=== PATIENT | female | born 1995 | race African-American/Black ===

== ENCOUNTER → 2020-07-23 12:47 | Outpatient (BNVA) | payer OTHER, SELFPAY | PROVIDERS: Visit Provider Advanced Practice Midwife | DX: Z34.90 Encounter for supervision of normal pregnancy, unspecified, unspecified trimester (principal) | CPT/HCPCS: 81025; 99211 ==

== ENCOUNTER → 2020-08-19 14:02 | Outpatient (BNVA) | payer OTHER, SELFPAY | PROVIDERS: Visit Provider Advanced Practice Midwife | DX: Z76.89 Persons encountering health services in other specified circumstances (principal) ==

== ENCOUNTER → 2020-09-14 09:22 | Outpatient (BNVA) | payer OTHER, SELFPAY | PROVIDERS: Visit Provider Advanced Practice Midwife | DX: Z76.89 Persons encountering health services in other specified circumstances (principal) ==

== ENCOUNTER 2020-09-28 10:22 | Outpatient (REF) | payer OTHER, SELFPAY ==
[2020-09-29 11:07] LABS: BV Int Neg Control Negative (Negative); BV Int Pos Control Positive (Positive)
[2020-10-23 10:42] LABS: CT PCR NOT DETECTED (Not Detect.); NG PCR NOT DETECTED (Not Detect.)
== END 2020-09-28 10:23 | disposition home or self-care (01) ==
LOC: HO.LAB 10:22
PROVIDERS: Visit Provider Advanced Practice Midwife
DX: O03.9 Complete or unspecified spontaneous abortion without complication (principal); N93.0 Postcoital and contact bleeding; Z11.8 Encounter for screening for other infectious and parasitic diseases; Z11.3 Encounter for screening for infections with a predominantly sexual mode of transmission
CPT/HCPCS: 87480; 87491; 87510; 87591; 87660; 99212

== ENCOUNTER 2020-11-18 07:48 | Outpatient (REF) | payer OTHER, SELFPAY ==
[2020-11-18 10:39] LABS: HCG Quantitative < 2 mIU/mL
[2020-11-18 10:48] LABS: HBsAGNum1 0.18 S/CO (0.00-0.99); HIV AB/AG Nonreactive (Nonreactive); HIV Num 1 0.08 S/CO (0.00-0.99); Hepatitis B Surface Antigen Negative (Negative)
[2020-11-18 11:05] LABS: ~HepC Num1 0.15 S/CO (0.00-0.79); ~Hepatitis C Antibody Nonreactive (Nonreactive)
[2020-11-19 09:12] LABS: Syphilis Screen Nonreactive (Nonreactive)
== END 2020-11-18 07:49 | disposition home or self-care (01) ==
LOC: HO.LAB 07:48
PROVIDERS: PCP Internal Medicine; Visit Provider Advanced Practice Midwife
DX: Z01.419 Encounter for gynecological examination (general) (routine) without abnormal findings (principal); Z87.59 Personal history of other complications of pregnancy, childbirth and the puerperium
CPT/HCPCS: 36415; 84702; 86780; 86803; 87340; 87389

== ENCOUNTER 2021-02-02 16:45 | Outpatient (REF) | payer OTHER, SELFPAY ==
[2021-02-02 18:08] LABS: Hematocrit 42.6 % (37-47); Hemoglobin 14.2 g/dl (12.0-16.0); Mean Corpuscular HGB Conc 33.3 g/dl (31.0-35.0); Mean Platelet Volume 9.6 fL (9.4-12.3); Platelet Count 261 X10*3/uL (160-400); Red Blood Count 4.58 X10*6/uL (4.20-5.50); Red Cell Distribution Width 12.7 % (11.0-16.0)
[2021-02-02 18:25] LABS: Alanine Aminotransferase 8 U/L (0-31); Albumin Level 4.6 g/dL (3.5-5.0); Alkaline Phosphatase 71 U/L (39-117); Anion Gap 11 (12-20); Aspartate Amino Transferase 14 U/L (5-31); Bilirubin Direct 0.7 mg/dL (0.0-0.5); Bilirubin Total 2.1 mg/dL (0.0-1.0); Blood Urea Nitrogen 8 mg/dL (9-16); Calcium 9.3 mg/dL (8.4-10.2); Carbon Dioxide 27 mmol/L (22-29); Chloride 105 mmol/L (96-108); Estimated Glomerular Filt Rate > 60; Glucose Random 62 mg/dL (60-115); Potassium 4.4 mmol/L (3.3-5.1); Sodium 139 mmol/L (135-145); Total Protein 7.4 g/dL (6.5-8.0)
[2021-02-02 18:46] LABS: Thyroid Stimulating Hormone 0.59 uIU/mL (0.32-4.0)
== END 2021-02-02 16:46 | disposition home or self-care (01) ==
LOC: HO.LAB 16:45
PROVIDERS: Visit Provider Internal Medicine
DX: Z01.818 Encounter for other preprocedural examination (principal)
CPT/HCPCS: 36415; 80048; 80076; 84443; 85027

== ENCOUNTER 2021-03-15 08:26 | Outpatient (REF) | payer OTHER, SELFPAY ==
[2021-03-15 13:02] LABS: CT PCR NOT DETECTED (Not Detect.); NG PCR NOT DETECTED (Not Detect.)
[2021-03-16 08:42] LABS: BV Int Neg Control Negative (Negative); BV Int Pos Control Positive (Positive)
== END 2021-03-15 08:27 | disposition home or self-care (01) ==
LOC: HO.LAB 08:26
PROVIDERS: PCP Internal Medicine; Visit Provider Advanced Practice Midwife
DX: Z20.2 Contact with and (suspected) exposure to infections with a predominantly sexual mode of transmission (principal)
CPT/HCPCS: 87480; 87491; 87510; 87591; 87660; 99212

== ENCOUNTER 2021-06-13 13:15 | Outpatient (REF) | payer OTHER, SELFPAY ==
[2021-06-14 01:01] LABS: CT PCR NOT DETECTED (Not Detect.)
[2021-06-14 01:02] LABS: NG PCR NOT DETECTED (Not Detect.)
[2021-06-14 08:38] LABS: BV Int Neg Control Negative (Negative); BV Int Pos Control Positive (Positive)
== END 2021-06-13 13:16 | disposition home or self-care (01) ==
LOC: HO.LAB 13:15
PROVIDERS: PCP Internal Medicine; Visit Provider Advanced Practice Midwife
DX: Z11.3 Encounter for screening for infections with a predominantly sexual mode of transmission (principal); Z20.2 Contact with and (suspected) exposure to infections with a predominantly sexual mode of transmission
CPT/HCPCS: 87480; 87491; 87510; 87591; 87660; 99212

== ENCOUNTER 2021-09-14 07:41 | Outpatient (REF) | payer OTHER, SELFPAY ==
[2021-09-15 01:26] LABS: CT PCR NOT DETECTED (Not Detect.); NG PCR NOT DETECTED (Not Detect.)
[2021-09-15 10:14] LABS: BV Int Neg Control Negative (Negative); BV Int Pos Control Positive (Positive)
== END 2021-09-14 07:42 | disposition home or self-care (01) ==
LOC: HO.LAB 07:41
PROVIDERS: PCP Internal Medicine; Visit Provider Advanced Practice Midwife
DX: N89.8 Other specified noninflammatory disorders of vagina (principal); Z20.2 Contact with and (suspected) exposure to infections with a predominantly sexual mode of transmission
CPT/HCPCS: 87480; 87491; 87510; 87591; 87660; 99212

== ENCOUNTER 2022-07-20 11:22 | Outpatient (REF) | payer OTHER, SELFPAY ==
[2022-07-20 16:47] LABS: CT PCR NOT DETECTED (Not Detect.); NG PCR NOT DETECTED (Not Detect.)
[2022-07-21 10:26] LABS: BV Int Neg Control Negative (Negative); BV Int Pos Control Positive (Positive)
== END 2022-07-20 11:23 | disposition home or self-care (01) ==
LOC: HO.LNP 11:22
PROVIDERS: Visit Provider Advanced Practice Midwife
DX: N89.8 Other specified noninflammatory disorders of vagina (principal); Z11.3 Encounter for screening for infections with a predominantly sexual mode of transmission; Z11.8 Encounter for screening for other infectious and parasitic diseases
CPT/HCPCS: 87480; 87491; 87510; 87591; 87660; 99212

== ENCOUNTER 2023-03-15 11:14 | Outpatient (REF) | payer OTHER, SELFPAY ==
[2023-03-15 14:25] LABS: MANUAL DIFF FLAG NO
[2023-03-15 14:41] LABS: Basophils Percent Auto 0.7 % (0-2); Eosinophils Percent Auto 0.7 % (0-4); Hematocrit 41.3 % (37.0-47.0); Hemoglobin 13.7 g/dl (12.0-16.0); Imm Gran Abs Auto 0.01 X10*3/uL (0.00-0.03); Imm Gran Pct Auto 0.2 % (0.0-0.4); Lymphocytes Absolute Auto 1.3 X10*3/uL (1.2-4.9); Lymphocytes Percent Auto 29.8 % (20-40); Mean Corpuscular HGB Conc 33.2 g/dl (31.0-35.0); Mean Corpuscular Hemoglobin 30.8 pg (27.0-33.0); Mean Corpuscular Volume 92.8 fL (80.0-98.0); Mean Platelet Volume 10.2 fL (9.4-12.3); Monocytes Absolute Auto 0.3 X10*3/uL (0.1-1.2); Monocytes Percent Auto 7.2 % (2-11); Neutrophils Absolute Auto 2.6 x10*3/uL (2.0-8.3); Neutrophils Percent Auto 61.4 % (45-73); Platelet Count 229 X10*3/uL (160-400); Red Blood Count 4.45 X10*6/uL (4.20-5.50); Red Cell Distribution Width 12.1 % (11.0-16.0); White Blood Count 4.2 X10*3/uL (4.8-10.8)
[2023-03-15 15:07] LABS: Alanine Aminotransferase 9 U/L (0-31); Albumin Level 4.4 g/dL (3.5-5.0); Alkaline Phosphatase 60 U/L (39-117); Anion Gap 10 (12-20); Aspartate Amino Transferase 15 U/L (5-31); Blood Urea Nitrogen 9 mg/dL (9-16); Calcium 9.4 mg/dL (8.4-10.2); Carbon Dioxide 25 mmol/L (22-29); Chloride 106 mmol/L (96-108); Cholesterol 143 mg/dL; Estimated Glomerular Filt Rate > 60; Glucose Random 97 mg/dL (60-115); Iron 118 mcg/dL (30-160); Percent Iron Saturation 34 % (15-50); Potassium 4.1 mmol/L (3.3-5.1); Sodium 137 mmol/L (135-145); Total Iron Binding Capacity 343 mcg/dL (228-428); Total Protein 7.3 g/dL (6.5-8.0); Unsaturated Iron Binding 225 ug/dL
[2023-03-15 15:23] LABS: Ferritin 20 ng/mL (10-122); TSH reflex Free T4 0.59 uIU/mL (0.32-4.0)
== END 2023-03-15 11:15 | disposition home or self-care (01) ==
LOC: HO.HMGCLDS 11:14
PROVIDERS: PCP Internal Medicine; Visit Provider Nurse Practitioner Family
DX: D50.9 Iron deficiency anemia, unspecified (principal); Z13.29 Encounter for screening for other suspected endocrine disorder; Z13.1 Encounter for screening for diabetes mellitus; Z13.0 Encounter for screening for diseases of the blood and blood-forming organs and certain disorders involving the immune mechanism; Z13.220 Encounter for screening for lipoid disorders
CPT/HCPCS: 36415; 80053; 82465; 82728; 83540; 84443; 85025

== ENCOUNTER 2023-03-31 08:29 | Outpatient (REF) | payer OTHER, SELFPAY ==
[2023-03-31 09:50] LABS: Bilirubin Direct 0.6 mg/dL (0.0-0.5)
== END 2023-03-31 08:30 | disposition home or self-care (01) ==
LOC: HO.LAB 08:29
PROVIDERS: PCP Internal Medicine; Visit Provider Nurse Practitioner Family
DX: R17 Unspecified jaundice (principal)
CPT/HCPCS: 36415; 82248

== ENCOUNTER 2023-04-02 18:54 | Emergency (ER) | payer OTHER, SELFPAY ==
[2023-04-02 18:59] VITALS: BP 140/77; PULSE 82; RESP 18; TEMP 36.4; O2SAT 98; BMI 18.7
--- NOTE | 2023-04-02 18:59 | ED_ITS ---
HPI - General Adult General Chief complaint: Abdominal Pain Stated complaint: abd pain Time Seen by Provider: 04/02/23 20:35 Source: patient Mode of arrival: ambulatory Limitations: no limitations History of Present Illness HPI narrative: Patient is a 27-year-old female who presents emergency department for evaluation of abdominal pain. Ports onset of pain to be approximately 5 days ago while at work. She was experiencing right lower quadrant of abdominal pain. Intermittent in nature since onset. Typically lasting about 1 hour. Improved after using the bathroom; moving bowels/urinating. She denies dysuria or hematuria, she urinary frequency. Her last menstrual period was approximately 2 months ago, irregular normally due to Nexplanon. Denies fevers, chills, chest pain, shortness of breath, nausea, vomiting, upper abdominal pain, constipation, pelvic pain, vaginal discharge, or concern for sexually transmitted infections. Denies possibility of . At this time she currently denies any pain. Related Data Home Medications Medication Instructions Recorded Confirmed etonogestrel 68 mg subdermal subdermal 07/20/22 implant (Nexplanon) Previous Rx's Medication Instructions Recorded cephalexin 250 mg capsule 250 mg PO BID #10 caps 04/02/23 Allergies Allergy/AdvReac Type Severity Reaction Status Date / Time No Known Allergies Allergy Verified 04/02/23 19:02 [No Known Allergies*] Review of Systems Review of Systems: Yes all other systems are reviewed and are negative [facility] Past Medical History Attestation statement: The following information was validated with the patient. Source: old records reviewed Medical History (Updated 04/02/23 @ 21:22 by Ofelia Laureano CNP) Jesusita-Ish syndrome History of anemia Surgical History History of eye surgery Family History Family History Mother No problems noted. Father No problems noted. Social History Social History (Updated 03/08/23 @ 07:51 by ANTHONY Mercedes) Household Members: Family Housing: Other (Stay with family) Alcohol intake: current Alcohol intake frequency: holidays/special occasions only Patient Tobacco Use Status: Never used Tobacco Smoked in Last 30 Days: No e-Cigarette/Vaping Use: Former Use Second Hand Smoke Exposure: No Use of substances other than those prescribed or required for medical reasons: No Advance Directives: No Advance Directives Information Provided: No Patient : No Current occupational status: employed Sexual orientation: Straight/Heterosexual Gender identity: Female Cognitive needs: No Hearing needs: No Vision needs: Yes Physical Exam ED Vital Signs: Vital Signs - 24 hr 04/02/23 18:59 04/02/23 20:04 04/02/23 21:31 Temperature 97.5 F 98.0 F Pulse Rate 82 88 2 L Respiratory Rate 18 17 18 Blood Pressure 140/77 H 121/74 118/78 Pulse Oximetry 98 100 100 Oxygen Delivery Method Room Air Room Air BMI result Body Mass Index 18.7 Vital signs have been reviewed as normal and appeared to be correct. Blood pressure normal.? Heart rate normal.? Respiration rate normal. Temperature normal.? Oxygen saturation normal. Const Other: Appearance: Alert.?Oriented to person, place and time. No acute distress.?Normal affect.? Neck: Normal inspection.? Neck supple.?? CVS: Heart sounds normal. Normal heart rate and rhythm.? Pulses normal.?? Respiratory: No respiratory distress.? Lung sounds clear to auscultation bilaterally?? Abdomen: Soft and non-tender. Normoactive bowel sounds. No pulsatile mass.?? Skin: Skin warm and dry.? Normal skin color.? Normal skin turgor.?? Extremities: No lower extremity edema.? Neuro: Moves all extremities spontaneously. Sensation intact bilaterally. Ambulates with normal steady gait. Course Course Course Narrative: RME- 27-year-old female presents for evaluation of lower abdominal pain. Plan for labs, UA, U preg Reevaluation(s) Reevaluation #1: CBC is unremarkable, no leukocytosis. CMP is overall unremarkable. Lipase within normal limits. Urinalysis with 1+ bacteriuria, slight microscopic hematuria, may be secondary to mild urinary tract infection, at this time not consistent with pyelonephritis, lower suspicion for renal calculi, however it is possible. I discussed obtaining CT of the abdomen and pelvis with patient for further evaluation, she declines at this time, states that if her symptoms worsen she will follow-up with her primary care provider. Given urinary frequency will treat as urinary tract infection, culture to be followed. At this time Abdominal examination is benign, not consistent with acute abdomen at this time, I have a low suspicion for appendicitis, diverticulitis, bowel obstruction, ovarian torsion. test is negative. Patient is agreeable with plan of care, stable for discharge. Time: 21:06 Medical Decision Making Medical Decision Making [facility] Narrative: Patient is a 27-year-old female with past medical history of iron deficiency anemia, due in Ish syndrome presenting to emergency department for evaluation of intermittent lower abdominal pain, currently is asymptomatic from pain, however endorsing urinary frequency. Will obtain CBC to evaluate for leukocytosis/ anemia, CMP and lipase to evaluate for abnormal electrolytes /abnormal renal function/ abnormal hepatic/biliary function, Urinalysis. Differential Diagnosis Differential Diagnoses: The differential diagnosis associated with the presentation includes (Urinary tract infection, pelvic infection, PID, sexually transmitted infection, appendicitis, diverticulitis, cholecystitis, hepatitis, constipation, bowel obstruction, ovarian cyst, ovarian torsion, ) Lab Data [facility] Lab Attestation statement: I reviewed the patient's lab results. 04/02/23 19:04/02/23 19:06 Labs: Lab Results 04/02/23 04/02/23 04/02/23 Range/Units 19:06 19:06 20:32 WBC 5.9 (4.8-10.8) X10*3/uL RBC 4.37 (4.20-5.50) X10*6/uL Hgb 13.4 (12.0-16.0) g/dl Hct 39.1 (37.0-47.0) % MCV 89.5 (80.0-98.0) fL MCH 30.7 (27.0-33.0) pg MCHC 34.3 (31.0-35.0) g/dl RDW 11.9 (11.0-16.0) % Plt Count 244 (160-400) X10*3/uL MPV 9.2 L (9.4-12.3) fL Immature Gran % (Auto) 0.3 (0.0-0.4) % Neut % (Auto) 57.3 (45-73) % Lymph % (Auto) 33.8 (20-40) % [place] % (Auto) 6.9 (2-11) % Eos % (Auto) 1.4 (0-4) % Baso % (Auto) 0.3 (0-2) % Lymph # (Auto) 2.0 (1.2-4.9) X10*3/uL [place] # (Auto) 0.4 (0.1-1.2) X10*3/uL Eos # (Auto) 0.1 (0.0-0.4) X10*3/uL Baso # (Auto) 0.0 (0.0-0.2) X10*3/uL Abs Immat Gran (auto) 0.02 (0.00-0.03) X10*3/uL Absolute Neuts (auto) 3.4 (2.0-8.3) x10*3/uL Absolute Nucleated RBC 0.000 (0.0-0.012) X10*3/uL Nucleated RBC % (auto) 0.0 (0.0-0.2) /100WBC Sodium 140 (135-145) mmol/L Potassium 3.9 (3.3-5.1) mmol/L Chloride 108 (96-108) mmol/L Carbon Dioxide 22 (22-29) mmol/L Anion Gap 14 (12-20) BUN 8 L (9-16) mg/dL Creatinine 0.87 (0.5-1.4) mg/dL Estim Creat Clear Calc 92.0 Estimated GFR > 60 Random Glucose 107 (60-115) mg/dL Calcium 9.7 (8.4-10.2) mg/dL Total Bilirubin 2.1 H (0.0-1.0) mg/dL AST 17 (5-31) U/L ALT 9 (0-31) U/L Alkaline Phosphatase 58 (39-117) U/L Total Protein 7.3 (6.5-8.0) g/dL Albumin 4.4 (3.5-5.0) g/dL Lipase 23 (8-78) U/L Urine Color Yellow Urine Appearance Clear Urine pH 7.0 (5.0-9.0) Ur Specific [place] 1.015 (1.005-1.025) Urine Protein Negative (Neg-Trace) mg/dL Urine Glucose (UA) Negative (Negative) mg/dL Urine Ketones Negative (Negative) mg/dL Urine Blood Negative (Negative) Urine Nitrite Negative (Negative) Ur Leukocyte Esterase Negative (Negative) Urine RBC 3-5 H (0-2) /HPF Urine WBC 0-5 (0-5) /HPF Ur Squamous Epith Cells 0-2 (0-2) /HPF Urine Bacteria 1+ (None Seen) Hyaline Casts 0-2 (0-2) /LPF Urine Test (NEGATIVE) 04/02/23 Range/Units 20:32 WBC (4.8-10.8) X10*3/uL RBC (4.20-5.50) X10*6/uL Hgb (12.0-16.0) g/dl Hct (37.0-47.0) % MCV (80.0-98.0) fL MCH (27.0-33.0) pg MCHC (31.0-35.0) g/dl RDW (11.0-16.0) % Plt Count (160-400) X10*3/uL MPV (9.4-12.3) fL Immature Gran % (Auto) (0.0-0.4) % Neut % (Auto) (45-73) % Lymph % (Auto) (20-40) % [place] % (Auto) (2-11) % Eos % (Auto) (0-4) % Baso % (Auto) (0-2) % Lymph # (Auto) (1.2-4.9) X10*3/uL [place] # (Auto) (0.1-1.2) X10*3/uL Eos # (Auto) (0.0-0.4) X10*3/uL Baso # (Auto) (0.0-0.2) X10*3/uL Abs Immat Gran (auto) (0.00-0.03) X10*3/uL Absolute Neuts (auto) (2.0-8.3) x10*3/uL Absolute Nucleated RBC (0.0-0.012) X10*3/uL Nucleated RBC % (auto) (0.0-0.2) /100WBC Sodium (135-145) mmol/L Potassium (3.3-5.1) mmol/L Chloride (96-108) mmol/L Carbon Dioxide (22-29) mmol/L Anion Gap (12-20) BUN (9-16) mg/dL Creatinine (0.5-1.4) mg/dL Estim Creat Clear Calc Estimated GFR Random Glucose (60-115) mg/dL Calcium (8.4-10.2) mg/dL Total Bilirubin (0.0-1.0) mg/dL AST (5-31) U/L ALT (0-31) U/L Alkaline Phosphatase (39-117) U/L Total Protein (6.5-8.0) g/dL Albumin (3.5-5.0) g/dL Lipase (8-78) U/L Urine Color Urine Appearance Urine pH (5.0-9.0) Ur Specific [place] (1.005-1.025) Urine Protein (Neg-Trace) mg/dL Urine Glucose (UA) (Negative) mg/dL Urine Ketones (Negative) mg/dL Urine Blood (Negative) Urine Nitrite (Negative) Ur Leukocyte Esterase (Negative) Urine RBC (0-2) /HPF Urine WBC (0-5) /HPF Ur Squamous Epith Cells (0-2) /HPF Urine Bacteria (None Seen) Hyaline Casts (0-2) /LPF Urine Test NEGATIVE (NEGATIVE) Independent Historian Clinical information obtained from an independent historian. History obtained from or confirmed by: Parent (Mother is at bedside who confirms history) Tests considered The following testing was considered but not selected: I considered CT of the abdomen/pelvis, however after shared decision making with patient will defer at this time. Hemodynamically stable, examination not consistent with acute abdomen Prescription Management I considered prescription management with: Antibiotic Discharge Plan Discharge Clinical Impression: Urinary tract infection Patient Disposition: Home, Self-Care Instructions: Urinary Tract Infection in Women (ED) Additional Instructions: As we discussed, the microscopic blood in your urine may be due to a mild urinary tract infection and/or a very small kidney stone. We discussed having a CT of your abdomen/pelvis in the emergency department, however at this time you declined. I have sent a prescription for an antibiotic to your pharmacy for treatment of urinary tract infection. Please contact your primary care provider in follow-up for persistent pain/symptoms kit in the next 2-3 days. You may return back to the emergency department with any new or significantly worsening symptoms or concerns. Prescriptions: New cephalexin 250 mg capsule 250 mg PO BID Qty: 10 0RF No Action Nexplanon 68 mg implant subdermal Referrals: Po,Buddy Carroll MD [Primary Care Provider] - Interventions: ED Discharge Assessment Last Done: 04/02/23 21:33 Discharge Date/Time: 04/02/23 21:33
[2023-04-02 19:10] LABS: MANUAL DIFF FLAG NO
[2023-04-02 19:21] LABS: Basophils Percent Auto 0.3 % (0-2); Eosinophils Absolute Auto 0.1 X10*3/uL (0.0-0.4); Eosinophils Percent Auto 1.4 % (0-4); Hematocrit 39.1 % (37.0-47.0); Hemoglobin 13.4 g/dl (12.0-16.0); Imm Gran Abs Auto 0.02 X10*3/uL (0.00-0.03); Imm Gran Pct Auto 0.3 % (0.0-0.4); Lymphocytes Percent Auto 33.8 % (20-40); Mean Corpuscular HGB Conc 34.3 g/dl (31.0-35.0); Mean Corpuscular Hemoglobin 30.7 pg (27.0-33.0); Mean Corpuscular Volume 89.5 fL (80.0-98.0); Mean Platelet Volume 9.2 fL (9.4-12.3); Monocytes Absolute Auto 0.4 X10*3/uL (0.1-1.2); Monocytes Percent Auto 6.9 % (2-11); Neutrophils Absolute Auto 3.4 x10*3/uL (2.0-8.3); Neutrophils Percent Auto 57.3 % (45-73); Platelet Count 244 X10*3/uL (160-400); Red Blood Count 4.37 X10*6/uL (4.20-5.50); Red Cell Distribution Width 11.9 % (11.0-16.0); White Blood Count 5.9 X10*3/uL (4.8-10.8)
[2023-04-02 19:27] LABS: Alanine Aminotransferase 9 U/L (0-31); Albumin Level 4.4 g/dL (3.5-5.0); Alkaline Phosphatase 58 U/L (39-117); Anion Gap 14 (12-20); Aspartate Amino Transferase 17 U/L (5-31); Bilirubin Total 2.1 mg/dL (0.0-1.0); Blood Urea Nitrogen 8 mg/dL (9-16); Calcium 9.7 mg/dL (8.4-10.2); Carbon Dioxide 22 mmol/L (22-29); Chloride 108 mmol/L (96-108); Estimated Glomerular Filt Rate > 60; Glucose Random 107 mg/dL (60-115); Lipase 23 U/L (8-78); Potassium 3.9 mmol/L (3.3-5.1); Sodium 140 mmol/L (135-145); Total Protein 7.3 g/dL (6.5-8.0)
[2023-04-02 20:04] VITALS: BP 121/74; PULSE 88; RESP 17; TEMP 36.7; O2SAT 100
--- NOTE | 2023-04-02 20:23 | PC.NURSE ---
Assumed care of pt. Pt ambulated in under own power. Endorsing lower mid abdominal pain, with mild radiation to LLQ. Pt stating increase in urinary frequency, denies other urinary symptoms. No other complaints at his time. VSS, pending urine sample.
[2023-04-02 20:42] LABS: UPreg QC Valid YES
[2023-04-02 20:43] LABS: Appearance Urine Clear; Color Urine Yellow; Glucose Urine UA Negative (Negative); Leukocyte Esterase Urine Negative (Negative); Nitrite Urine Negative (Negative); Specific Gravity - Urine 1.015 (1.005-1.025); Urine Blood Negative (Negative); Urine Ketones Negative (Negative); Urine Protein Negative (Neg-Trace)
[2023-04-02 20:45] LABS: Urine Pregnancy NEGATIVE (NEGATIVE)
[2023-04-02 20:53] LABS: Bacteria Urine 1+ (None Seen); Hyaline Casts Urine 0-2 /LPF (0-2); Squamous Epithelial Cell Urine 0-2 /HPF (0-2); WBC Urine 0-5 /HPF (0-5)
[2023-04-02 21:31] VITALS: BP 118/78; PULSE 2; RESP 18; O2SAT 100
== END 2023-04-02 21:33 | disposition home or self-care (01) ==
PROVIDERS: Physician Assistant; Emergency Provider Emergency Medicine; PCP Internal Medicine
DX: N39.0 Urinary tract infection, site not specified (principal); Z79.899 Other long term (current) drug therapy
CPT/HCPCS: 36415; 80053; 81001; 81025; 83690; 85025; 99283; 99284

== ENCOUNTER 2023-04-19 19:52 | Emergency (ER) | payer OTHER, SELFPAY ==
[2023-04-19 19:58] VITALS: BP 124/81; PULSE 77; RESP 18; TEMP 36.4; O2SAT 97; BMI 18.7
--- NOTE | 2023-04-19 19:58 | ED.GENADULT ---
HPI - General Adult General Chief complaint: Chest Pain Stated complaint: Chest Pain Time Seen by Provider: 04/19/23 21:27 Source: patient Mode of arrival: ambulatory Limitations: no limitations History of Present Illness HPI narrative: Patient is a 28-year-old female who presents to emergency department for evaluation of chest pain. Patient reports around 1300 today while at work she developed sharp left anterior chest pain. The pain was persistent while at work, and she then developed radiation into her left arm. At this time the pain has nearly completely resolved. She does describe some soreness. She denies associated dizziness, lightheadedness, vision changes, neck pain, shortness of breath difficulty breathing, recent URI symptoms, cough, nausea vomiting abdominal pain, numbness of the extremities, recent lower extremity swelling or redness. Her mother is present at bedside confirms this history. Past medical history is unknown as she was adopted. Related Data Home Medications Medication Instructions Recorded Confirmed etonogestrel 68 mg subdermal subdermal 07/20/22 implant (Nexplanon) Previous Rx's Medication Instructions Recorded cephalexin 250 mg capsule 250 mg PO BID #10 caps 04/02/23 Allergies Allergy/AdvReac Type Severity Reaction Status Date / Time No Known Allergies Allergy Verified 04/02/23 19:02 [No Known Allergies*] Review of Systems Review of Systems: Constitutional : No Weight loss, No Fever, No Chills ENT/Mouth :? No sore throat, No Rhinorrhea Eyes: No Eye Pain, No Swelling Cardiovascular : pos Chest Pain, no SOB, no Dyspnea on Exertion, No Orthopnea, No Edema, No Palpitations Respiratory : No Cough, No Sputum Gastrointestinal : No Nausea, No Vomiting, No Diarrhea, No abdominal Pain, No Hematochezia, No Melena Genitourinary : No Dysuria, No Urinary Frequency Musculoskeletal : No joint pain, No Myalgias, No Joint Swelling Skin : No Skin Lesions, No rash Neuro : No Weakness, No Numbness, No Dizziness, No Headache Psych : No Anxiety/Panic, No Depression Heme/Lymph: No Bruising, No Lymphadenopathy Endocrine : No Polyuria, No Polydipsia Yes all other systems are reviewed and are negative [facility] Past Medical History Attestation statement: The following information was validated with the patient. Source: old records reviewed Medical History Jesusita-Ish syndrome History of anemia Surgical History History of eye surgery Family History Family History Mother No problems noted. Father No problems noted. Social History Social History (Updated 03/08/23 @ 07:51 by ANTHONY Mercedes) Household Members: Family Housing: Other (Stay with family) Alcohol intake: current Alcohol intake frequency: holidays/special occasions only Patient Tobacco Use Status: Never used Tobacco e-Cigarette/Vaping Use: Former Use Second Hand Smoke Exposure: No Advance Directives: No Advance Directives Information Provided: No Current occupational status: employed Sexual orientation: Straight/Heterosexual Gender identity: Female Cognitive needs: No Hearing needs: No Vision needs: Yes Physical Exam ED Vital Signs: Vital Signs - 24 hr 04/19/23 19:58 Temperature 97.5 F Pulse Rate 77 Respiratory Rate 18 Blood Pressure 124/81 Pulse Oximetry 97 Oxygen Delivery Method Room Air BMI result Body Mass Index 18.7 Appearance: Alert.?Oriented to person, place and time. No acute distress.?Normal affect. Eyes: Pupils equal, round and reactive to light.? ENT: Pharynx normal.?? Neck: Normal inspection.? Neck supple.?? CVS: Heart sounds normal. Normal heart rate and rhythm.? Pulses normal.?? Respiratory: No respiratory distress.? Lung sounds clear to auscultation bilaterally?? Abdomen: Soft and non-tender. Normoactive bowel sounds. No pulsatile mass.?? Skin: Skin warm and dry.? Normal skin color.? Extremities: No lower extremity edema.? No calf ttp? Neuro: Moves all extremities spontaneously. Sensation intact bilaterally. No focal neuro deficits. Ambulates with normal steady gait. Course Course Course Narrative: This is an RME: Additional HPI, ROS, PE not included below will be deferred to primary provider. This is a [id number]-female, with no known medical history, presenting to the emergency department with complaints of left sided chest pain x 5 hours. Chest pain is constant. No known FMHx of cardiac problems. VSS. Plan: EKG, chest x-ray, labs ordered Medical Decision Making Medical Decision Making MDM Narrative: Patient is a 28-year-old female with past medical history of anemia, Jesusita- Ish Syndrome who presents emergency department with her mother for evaluation of chest pain as per HPI. At the time my examination she is overall well-appearing, nontoxic, afebrile. Apparent respiratory distress. Speaking clear full sentences. Physical examination is benign. Chest pain at this time has nearly completely resolved, she does have some mild ?soreness? the left upper anterior chest, most notably worse while moving her left arm. Based on history this appears atypical for cardiac in nature. PERC negative, does not appear consistent with pulmonary embolism, therefore CT imaging deferred at this time. Reviewed labs obtained from rapid medical examination, no leukocytosis, no anemia. CMP is unremarkable. Troponin nondetectable, EKG revealing normal sinus rhythm without any acute ischemic findings. Chest x-ray is without acute cardiopulmonary process, no evidence of pneumonia or pneumothorax. Pain at this time pears most consistent to be musculoskeletal in nature. Reviewed use of NSAID heat/ice. Reviewed worrisome signs and symptoms that would warrant re-evaluation in the emergency department. Recommended outpatient follow-up with primary care provider. All questions answered. Stable for discharge. Differential Diagnosis Differential Diagnoses: The differential diagnosis associated with the presentation includes (As noted above) Admission/Observation Consideration of admission/observation: Escalation of care including admission/observation considered (I considered admission for chest pain, please see narrative above) Lab Data MDM Lab Attestation statement: I reviewed the patient's lab results. (Seen narrative above) 04/19/23 20:07 04/19/23 20:07 Labs: Lab Results 04/19/23 04/19/23 04/19/23 Range/Units 20:07 20:07 20:07 WBC 4.9 (4.8-10.8) X10*3/uL RBC 4.16 L (4.20-5.50) X10*6/uL Hgb 12.7 (12.0-16.0) g/dl Hct 37.0 (37.0-47.0) % MCV 88.9 (80.0-98.0) fL MCH 30.5 (27.0-33.0) pg MCHC 34.3 (31.0-35.0) g/dl RDW 11.9 (11.0-16.0) % Plt Count 239 (160-400) X10*3/uL MPV 9.1 L (9.4-12.3) fL Immature Gran % (Auto) 0.2 (0.0-0.4) % Neut % (Auto) 44.1 L (45-73) % Lymph % (Auto) 43.3 H (20-40) % [place] % (Auto) 8.7 (2-11) % Eos % (Auto) 3.1 (0-4) % Baso % (Auto) 0.6 (0-2) % Lymph # (Auto) 2.1 (1.2-4.9) X10*3/uL [place] # (Auto) 0.4 (0.1-1.2) X10*3/uL Eos # (Auto) 0.2 (0.0-0.4) X10*3/uL Baso # (Auto) 0.0 (0.0-0.2) X10*3/uL Abs Immat Gran (auto) 0.01 (0.00-0.03) X10*3/uL Absolute Neuts (auto) 2.1 (2.0-8.3) x10*3/uL Absolute Nucleated RBC 0.000 (0.0-0.012) X10*3/uL Nucleated RBC % (auto) 0.0 (0.0-0.2) /100WBC Sodium 139 (135-145) mmol/L Potassium 4.2 (3.3-5.1) mmol/L Chloride 109 H (96-108) mmol/L Carbon Dioxide 22 (22-29) mmol/L Anion Gap 12 (12-20) BUN 10 (9-16) mg/dL Creatinine 0.95 (0.5-1.4) mg/dL Estim Creat Clear Calc 83.5 Estimated GFR > 60 Random Glucose 85 (60-115) mg/dL Calcium 9.4 (8.4-10.2) mg/dL Troponin I High Sens < 2.7 (<3.5-17.0) ng/L Independent Interpretation I performed an independent interpretation of an: EKG and Plain X-Ray (I have personally interpreted chest x-ray agree with radiologist impression, no pneumonia or pneumothorax.) Interpretation: Rate: 68 Rhythm:? Normal sinus rhythm [place]:? Normal Normal P waves.? Normal LUCY.?? Normal QRS complex.?? ST T wave :??No ST elevation, no ST depression, T-wave inversion qTC: 387 prior studies:? None prior available for review The study has been interpreted contemporaneously by me. Radiology Impression Discussion of test interpretation with radiology: I have reviewed the radiologist's reading. Radiologist Impression: XR/XR chest 2V IMPRESSION: Clear lungs. ? Independent Historian Clinical information obtained from an independent historian. History obtained from or confirmed by: Parent (Patient's mother is at bedside who confirms history.) External Record Review External record reviewed: Prior outpatient labs Tests considered The following testing was considered but not selected: I considered CT imaging of the chest, however deferred please see narrative above. Prescription Management I considered prescription management with: Pain Medication (NSAID/acetaminophen) Discharge Plan Discharge Clinical Impression: Chest pain Patient Disposition: Home, Self-Care Instructions: Chest Pain (ED) Additional Instructions: As discussed, your blood work today was overall normal. There is no significant anemia. No sign of infection. The marker that we use to look at for indication of a heart attack was normal. Your EKG was normal. Your chest x-ray today was normal. Your pain has significantly improved. You can take ibuprofen 200 mg, 3 tablets (600mg) every 6-8 hours as needed for pain, in addition to Tylenol 500 mg, 2 tablets (1,000mg) every 4-6 hours as needed for pain, but not to exceed 3 doses daily (3,000mg).? Please contact your primary care provider and arrange for further follow-up. You may return back to the emergency department with any new or significantly worsening symptoms or concerns. Prescriptions: No Action cephalexin 250 mg capsule 250 mg PO BID Qty: 10 0RF Nexplanon 68 mg implant subdermal Referrals: Po,Buddy Carroll MD [Primary Care Provider] - Interventions: ED Discharge Assessment Last Done: 04/19/23 22:23 Discharge Date/Time: 04/19/23 22:24
== END 2023-04-19 22:24 | disposition home or self-care (01) ==
PROVIDERS: Emergency Provider Student in an Organized Health Care Education/Training Program; PCP Internal Medicine
DX: R07.9 Chest pain, unspecified (principal)
CPT/HCPCS: 36415; 71046; 80048; 84484; 85025; 93005; 99283

== ENCOUNTER 2023-07-12 07:40 | Outpatient (REF) | payer OTHER, SELFPAY ==
[2023-07-12 17:17] LABS: CT PCR NOT DETECTED (Not Detect.); NG PCR NOT DETECTED (Not Detect.)
== END 2023-07-12 07:41 | disposition home or self-care (01) ==
LOC: HO.LNP 07:40
PROVIDERS: PCP Internal Medicine; Visit Provider Advanced Practice Midwife
DX: Z01.419 Encounter for gynecological examination (general) (routine) without abnormal findings (principal); R10.2 Pelvic and perineal pain; Z20.2 Contact with and (suspected) exposure to infections with a predominantly sexual mode of transmission
CPT/HCPCS: 0353U; 88142; 99395

== ENCOUNTER 2023-07-12 07:40 | Outpatient (AMB) | payer OTHER, SELFPAY ==
[2023-07-12 07:50] VITALS: BP 100/62; BMI 19.7
--- NOTE | 2023-07-12 07:50 | A.OFFVIS_ITS ---
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 Scribed for [facility]USH[employer] [facility] by Rosa Parisi medical transcriptionist, on 07/12/2023 at 8:10 am EST. Founder & Ceo: Founder & Ceo Present (Tonie) Allergies No Known Allergies [No Known Allergies*] Allergy (Verified 07/12/23 07:53) Is last menstrual period known: Yes Last menstrual period: 06/14/23 HPI HPI Comments History of Present Illness Details She is a premenopausal woman presenting for annual exam. She admits to eating healthy and tries to stay active with exercise. Currently sexually active. Uses Nexplanon and is doing well with it; unsure of exact date of implantation. Reports occasionally having pelvic pain but believes its due to having gas. Denies urinary symptoms. Regular monthly periods. Denies vaginal itching and irritation. STD screening offered; she accepts. STD blood work offered; she declines. Denies family hx of breast, colon and ovarian cancer. (Reports she is adopted; unknown FMHx) Last pap smear 2019 normal hx per pt. [facility] Medical History (Updated 07/12/23 @ 08:46 by Elli Reddy CNM) Adopted Jesusita-Ish syndrome History of anemia Surgical History History of eye surgery Family History Mother No problems noted. Father No problems noted. Social History (Updated 07/12/23 @ 08:49 by Elli Reddy CNM) Household Members: Family Housing: Other (Stay with family) Alcohol intake: current Alcohol intake frequency: holidays/special occasions only Patient Tobacco Use Status: Never used Tobacco e-Cigarette/Vaping Use: Former Use Second Hand Smoke Exposure: No Current occupational status: employed Current occupation: [employer] [place] Sexual orientation: Straight/Heterosexual Gender identity: Female Cognitive needs: No Hearing needs: No Vision needs: Yes Female Reproductive History Menstrual Age of Menarche: 15 Date of last menstrual period: 06/14/23 control method: implanted (Nexplanon ?inserted 08/2022) Total pregnancies: 1 Full term: 1 Number of Living Children: 1 Physical Exam Vital Signs: Last Vital Signs BP 100/62 07/12/23 07:50 BMI result Body Mass Index 19.7 Const General: cooperative, healthy appearing, no acute distress, well developed and alert Orientation/consciousness: patient oriented x3 HEENT Head: Yes normal to inspection Eyes General: appearance normal, both eyes and all related structures Neck Neck: Yes normal visual inspection Thyroid: Thyroid normal Chest Chest palpation & inspection: normal inspection of the chest Breast/axilla inspection: normal inspection of the breasts (no puckering, dimpling, peau de orange, retraction, discharge, masses) Breast/axilla palpation: normal palpation of the breasts Resp Effort & Inspection: normal respiratory effort GI Inspection: Yes normal to inspection Palpation (GI): Soft to palpation (to palpation) Rectal Exam - Female: deferred General: Yes bladder normal to inspection External Female Exam: normal external appearance and normal appearance of the urethra Speculum Exam - Vagina: normal appearance of the vagina, normal palpation and abnormal vaginal discharge white (watery) Speculum Exam - Cervix: normal appearance of the cervix and normal palpation Bimanual exam- vagina & uterus: normal palpation and normal palpation Bimanual Exam- Adnexa, other: normal adnexae and no masses Skin General skin exam: no rashes or lesions noted Neuro General: patient oriented x3 Cognition (Neuro): normal cognition Extrem General: Yes normal to inspection Psych Attitude: cooperative Thought process: Normal thought process present Assessment & Plan Assessment & Plan (1) Encounter for well woman exam: Code(s): Z01.419 - Encounter for gynecological examination (general) (routine) without abnormal findings Plan: Discussed: Current recommendations for pap smears per ASCCP guidelines. Breast awareness and periodic self breast exams. Maintaining a healthy lifestyle including a well balanced diet and routine exercise. 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 Contact office regarding date of Nexplanon insertion, informed valid for 3 yrs. All of her questions and concerns were addressed to the best of my ability. RTO in one year for AG. (2) Pelvic pain: Code(s): R10.2 - Pelvic and perineal pain Plan: Dietary changes: Avoid carbonated drinks and cruciferous food. If experience bloating or discomfort contact office. (3) Potential exposure to STD: Code(s): Z20.2 - Contact with and (suspected) exposure to infections with a predominantly sexual mode of transmission Plan: BV testing and GC/CT panel done today. Await results and treat accordingly. Orders: Orders CT NG by PCR Today Z20.2 - Contact with and (suspected) exposure to infections with a predominantly sexual mode of transmission Pap Smear Today Z01.419 - Encounter for gynecological examination (general) (routine) without abnormal findings Coding Level of Care Code Est Pt Prev Care 18-39y(33256) Diagnoses Encounter for well woman exam Z01.419 Pelvic pain R10.2 Potential exposure to STD Z20.2
== END 2023-07-12 08:30 | disposition home or self-care (01) ==
PROVIDERS: PCP Internal Medicine; Visit Provider Advanced Practice Midwife
DX: Z01.419 Encounter for gynecological examination (general) (routine) without abnormal findings (principal); R10.2 Pelvic and perineal pain; Z20.2 Contact with and (suspected) exposure to infections with a predominantly sexual mode of transmission
CPT/HCPCS: 99395

== ENCOUNTER 2023-07-18 09:01 | Outpatient (AMB) | payer OTHER, SELFPAY ==
--- NOTE | 2023-07-18 10:29 | MHC.OFFWIV ---
Intake Intake Visit Reasons: [id number] Intake Note: Patient here for UTI sx for about 1 week such as cramping and abdominal pain. Patient Tobacco Use Status: Never used Tobacco Allergies No Known Allergies [No Known Allergies*] Allergy (Verified 07/18/23 10:30) Do you need a note to return to daycare/school/sports/work: No HPI HPI Comments History of Present Illness Details 1031 28-year-old female presents with urinary frequency, urgency, dysuria, lower abdominal cramping, suprapubic abdominal discomfort for the past week. Not improving. Patient tells me this feels like her typical UTI. She does not think that she is . She does not think she has any STDs. Patient denies fevers, chills, nausea, vomiting, flank pain, headache, vision changes, dizziness, weakness, chest pain and shortness of breath. Patient does report she has been taking azo with some relief of symptoms. Physical examination benign no abdominal tenderness to palpation. No rebound or guarding History and physical exam concerning for possible UTI versus cystitis. Unlikely pyelonephritis, acute abdomen, appendicitis, cholecystitis, diverticulitis, pancreatitis, obstruction. Unlikely kidney stones or obstructing uropathy Plan at this time UA. Will treat patient with Ceftin. Educated patient on diagnosis and treatment plan, answered all question, patient verbalizes understanding. At this time patient will be discharged home, advised to return with new or worsening symptoms. Educated on worrisome signs and symptoms and when to return. At this time I feel comfortable discharge home. [facility] Medical History Adopted Jesusita-Ish syndrome History of anemia Surgical History History of eye surgery Family History Mother No problems noted. Father No problems noted. 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 Sexual orientation: Straight/Heterosexual Gender identity: Female Cognitive needs: No Hearing needs: No Vision needs: Yes Female Reproductive History Menstrual Age of Menarche: 15 Review of Systems Const Details: Constitutional : No Weight loss, No Fever, No Chills, No Fatigue, No Malaise ENT/Mouth : No sore throat, No Rhinorrhea Eyes: No Eye Pain, No Swelling, No Redness Cardiovascular : No Chest Pain, No SOB, No Dyspnea on Exertion, No Orthopnea, No Edema, No Palpitations Respiratory : No Cough, No Sputum, No Wheezing Gastrointestinal : No Nausea, No Vomiting, No Diarrhea, No Constipation, + abdominal Pain, No Hematochezia, No Melena Genitourinary : + Dysuria, + Urinary Frequency, No Hematuria, Musculoskeletal : No joint pain, No Myalgias, No Joint Swelling Skin : No Skin Lesions, No rash Neuro : No Weakness, No Numbness, No Dizziness, No Headache Psych : No Anxiety/Panic, No Depression All other systems reviewed and are negative All systems reviewed & are unremarkable except as noted in HPI and below Physical Exam Vital Signs: Vital signs stable Appearance: Alert.? Oriented X3.? No acute distress.? Head: Normocephalic, atraumatic, no step-offs or deformities Eyes: Pupils equal, round and reactive to light.? CVS: Normal heart rate and rhythm.? Pulses normal.? Respiratory: No respiratory distress.? Breath sounds normal.? Abdomen: Soft and nontender.? Negative Rovsing, McBurney's point. No active bowel sounds throughout, Skin: Skin warm and dry.? Normal skin color.? Normal skin turgor.? Extremities: No lower extremity edema.? No calf ttp. 5/5 strength to bilateral upper and lower extremities Neuro: Oriented X 3.? No motor deficit.? No sensory deficit. CN 2-12 intact Assessment & Plan Assessment & Plan (1) Urinary tract infection: Code(s): N39.0 - Urinary tract infection, site not specified Plan Take your medications as prescribed. If you were prescribed antibiotics today, it is important that you take your medication to their entirety, do not skip any doses, do not finish them early. Follow-up with your primary care provider this week. Return to the emergency department with new or worsening symptoms. Such as fevers, chills, chest pain, shortness of breath, nausea, vomiting, dizziness, headache, vision changes, lethargy In case of emergency call 911 Medications: New cefuroxime axetil 250 mg PO BID 14 tabs 0RF 7 days Coding Level of Care Code Est Pt Level 3 (66631) Diagnoses Urinary tract infection N39.0
[2023-07-18 10:39] VITALS: BP 110/62; PULSE 62; O2SAT 98
== END 2023-07-18 11:08 | disposition home or self-care (01) ==
PROVIDERS: PCP Internal Medicine; Visit Provider Physician Assistant
DX: N39.0 Urinary tract infection, site not specified (principal); R30.0 Dysuria
CPT/HCPCS: 81003; 99213

== ENCOUNTER 2023-07-26 07:07 | Outpatient (AMB) | payer OTHER, SELFPAY ==
--- NOTE | 2023-07-26 07:08 | MHC.PC.OV ---
Intake Visit Reasons: f/u questions Allergies No Known Allergies [No Known Allergies*] Allergy (Verified 07/26/23 07:09) Tobacco use date assessed: 03/08/23 Dental Screening Dental Screen Date: 07/26/23 Did you have a dental visit in the last 12 months?: Yes Did you have a dental problem in the last 6 months where you did not have access to dental care?: No Was dental information given to patient?: Patient has dentist HPI HPI Comments History of Present Illness Details Past medical history significant for anemia. Review of the notes patient was seen in the walk-in clinic on 07/18/2023 for suprapubic pain, lower abdominal cramping, dysuria, urgency and frequency. Urine dip showed positive nitrates and 500 leukocytes. Patient was treated with Ceftin. Patient reports initially after taking the antibiotic that her symptoms cleared up however 2 days later she did start presenting with dysuria again. Denies fever, chills nausea, vomiting flank pain. Will order urinalysis was sent a culture to further evaluate. 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 Patient verbalizes understanding. [facility] Medical History Adopted Jesusita-Ish syndrome History of anemia Surgical History History of eye surgery Family History Mother No problems noted. Father No problems noted. 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 1. Little interest or pleasure in doing things: not at all 2. Feeling down, depressed, or hopeless: not at all 3. Trouble falling or staying asleep, or sleeping too much: not at all 4. Feeling tired or having little energy: not at all 5. Poor appetite or overeating: not at all 6. Feeling bad about yourself - or that you are a failure or have let yourself or your family down: not at all 7. Trouble concentrating on things, such as reading the newspaper or watching television: not at all 8. Moving or speaking so slowly that other people could have noticed. Or the opposite - being so fidgety or restless that you have been moving around a lot more than usual: not at all 9. Thoughts that you would be better off or of hurting yourself in some way: not at all Total score: 0 Depression Screening Interpretation: Negative Depression Screening Done: Yes 63268 - PHQ-9 Billing: Yes Source: Developed by Drs. Pineda Thompson, Page Eduardo, Griffin Johnson and colleagues, with an educational jay from [employer]. Thrive Questionnaire Date Thrive assessed: 03/08/23 I am a: Patient What is your living situation today?: I have a steady place to live Within the past 12 months, did the food you bought not last and you didn't have the money to get more?: Never true Within the past 12 months, did you worry whether your food would run out before you got money to buy more?: Never true Do you have trouble paying for medicines?: No Do you have trouble getting transportation to medical appointments?: No Do you have trouble paying your heating and electricity bill?: No Do you have trouble taking care of your child, family member or friend?: No Do you have trouble with day-to-day activities such as bathing, preparing meals, shopping, managing finances, etc.?: No Are you currently unemployed and looking for a job?: No Are you interested in more education?: No Currently or been in a relationship where the following occur: no concerns reported AUDIT C Alcohol Use Questionnaire (AUDIT-C) 1. How often do you have a drink containing alcohol?: 2-3 times a week 2. How many drinks containing alcohol do you have on a typical day when you are drinking?: 1 or 2 3. How often do you have six or more drinks on one occasion?: Never Total Score: 3 LAURA-7 AMB Questionnaire LAURA-7 Date LAURA - 7 assessed: 03/08/23 Source: Developed by Drs. Pineda Thompson, Page Eduardo, Griffin Johnson and colleagues, with an educational jay from [employer]. Review of Systems Card Reports no additional complaints Resp Reports no additional complaints Reports dysuria, Denies pelvic pain, Denies urinary incontinence and Denies urinary urgency Physical exam (Primary Care) Tobacco/Smoking Status: Tobacco use Status Tobacco use date assessed 03/08/23 07/26/23 07:10 Patient Tobacco Use Status Never used Tobacco 07/26/23 07:10 e-Cigarette/Vaping Use Former Use 07/26/23 07:10 PHQ-9: PHQ-9 Score PHQ-9: Total score 0 07/26/23 07:10 Depression Screening Interpretation: Negative Thrive Assessment: Date of Thrive Assessment Date Thrive assessed 03/08/23 07/26/23 07:10 Currently or been in a relationship where the following occur: no concerns reported Telehealth Telehealth Location of provider rendering services: practice address Location of patient: address on file Patient Identification confirmed using: Name, : Yes Telehealth method: video (Iphone) Patient verbally consented to treatment: Yes Patient verbally consented to billing insurance company: Yes Patient informed of any privacy concerns related to visit: Yes Minutes spent on Phone/Video with Pt.: 6 Assessment and Plan Assessment & Plan (1) Dysuria: Code(s): R30.0 - Dysuria Plan: Urinalysis with reflex culture ordered, given patient completed treatment with Ceftin 2 days ago will hold off until culture is resulted until additional treatment is sent in. Patient agreeable plan of care. (2) Elevated bilirubin: Code(s): R17 - Unspecified jaundice Orders: Orders UA CC w/rflx Micro + Cult Today R30.0 - Dysuria Coding Level of Care Code Tele Est Pt Level 3 (39892) Diagnoses Dysuria R30.0 Elevated bilirubin R17
== END 2023-07-26 07:25 | disposition home or self-care (01) ==
LOC: HO.HMGH 07:07
PROVIDERS: PCP Internal Medicine; Visit Provider Nurse Practitioner Family
DX: R30.0 Dysuria (principal); R17 Unspecified jaundice
CPT/HCPCS: 99213

== ENCOUNTER 2023-08-15 | Outpatient (REF) | payer OTHER, SELFPAY ==
[2023-08-15 12:01] LABS: Appearance Urine Clear; Color Urine Yellow; Glucose Urine UA Negative (Negative); Leukocyte Esterase Urine Negative (Negative); Nitrite Urine Negative (Negative); UMIC TRIGGER UACC YES; Urine Blood Trace (Negative); Urine Ketones Negative (Negative); Urine Protein Negative (Neg-Trace)
[2023-08-15 12:04] LABS: Bacteria Urine 1+ (None Seen); Hyaline Casts Urine 0-2 /LPF (0-2); UACC Culture Trigger YES
== END 2023-08-15 00:01 | disposition home or self-care (01) ==
LOC: HO.LAB
PROVIDERS: PCP Internal Medicine; Visit Provider Nurse Practitioner Family
DX: R30.0 Dysuria (principal)
CPT/HCPCS: 81001; 81003; 87086

== ENCOUNTER 2023-10-26 13:54 | Outpatient (AMB) | payer OTHER, SELFPAY ==
[2023-10-26 14:10] VITALS: BP 110/66; BMI 19.6
--- NOTE | 2023-10-26 14:10 | A.OFFVIS_ITS ---
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 She denies any fever flu-like symptoms, nausea, vomiting, diarrhea, or constipation. She denies any symptoms of urinary tract infection. Urine dip and test are negative today. [facility] Adopted Jesusita-Ish syndrome History of anemia Surgical History History of eye surgery Family History Mother No problems noted. Father No problems noted. 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 Sexual orientation: Straight/Heterosexual Gender identity: Female Cognitive needs: No Hearing needs: No Vision needs: Yes Female Reproductive History Menstrual Age of Menarche: 15 Date of last menstrual period: 09/29/23 Review of Systems Const All systems reviewed & are unremarkable except as noted in HPI and below Physical Exam Vital Signs: Last Vital Signs BP 110/66 10/26/23 14:10 BMI result Body Mass Index 19.6 Const General: cooperative, healthy appearing and no acute distress Orientation/consciousness: patient oriented x3 GI Inspection: Yes normal to inspection Palpation (GI): Soft to palpation and Other GI palpation findings present (Nontender) Rectal Exam - Female: visual inspection normal General: Yes bladder normal to palpation External Female Exam: normal appearance of the urethra Speculum Exam - Vagina: normal appearance of the vagina, normal palpation and normal vaginal discharge Speculum Exam - Cervix: normal appearance of the cervix and normal palpation Bimanual exam- vagina & uterus: normal bimanual exam, normal palpation, uterine size normal, bladder normal to palpation, normal palpation, uterine shape normal, non-tender and other (Retroverted) Bimanual Exam- Adnexa, other: normal adnexae and tender (Mild, no guarding) Neuro General: patient oriented x3 Results AMB Test Urine AMB Test Urine Negative Last Edit by Yvette Arevalo CMA on 14:29 AMB Urinalysis Dipstick UR Leukocytes Negative Last Edit by Yvette Arevalo CMA on 10/26/23 14:29 UR Nitrite Negative Last Edit by Yvette Arevalo CMA on 10/26/23 14:29 UR Urobilinogen Normal Last Edit by Yvette Arevalo CMA on 10/26/23 14:29 UR Protein Negative Last Edit by Yvette Arevalo CMA on 10/26/23 14:29 UR Ph 6.0 Last Edit by Yvette Arevalo CMA on 10/26/23 14:29 UR Blood Trace Last Edit by Yvette Arevalo CMA on 10/26/23 14:29 UR Specific Biddle 1.020 Last Edit by Yvette Arevalo CMA on 10/26/23 14:29 UR Ketone Negative Last Edit by Yvette Arevalo CMA on 10/26/23 14:29 UR Bilirubin Negative Last Edit by Yvette Arevalo CMA on 10/26/23 14:29 UR Glucose Negative Last Edit by Yvette Arevalo CMA on 10/26/23 14:29 Results Reviewed Results Reviewed: Laboratory Last Values Urine pH (Clinic) 6.0 10/26/23 14: Specific Biddle (Clinic) 1.020 10/26/23 14:28 Ur Protein (Clinic) Negative 10/26/23 14:28 Ur Ketones (Clinic) Negative 10/26/23 14:28 Urine Blood (Clinic) Trace 10/26/23 14:28 Urine Nitrite Negative 10/26/23 14: Urine Bilirubin (Clinic) Negative 10/26/23 14:28 Urobilinogen (Clinic) Normal 10/26/23 14:28 Leukocyte Esterase (Clinic) Negative 10/26/23 14:28 Urine Glucose (Clinic) Negative 10/26/23 14:28 Tst Clinic Negative 10/26/23 14:28 Assessment & Plan Assessment & Plan (1) Pelvic pain: Code(s): R10.2 - Pelvic and perineal pain Plan Discussed plan of care: Pelvic ultrasound, cultures for GC chlamydia and bacterial vaginosis panel. Reviewed [id number] self-help medications for mild discomfort including Tylenol or ibuprofen if no contraindications, taken as directed with food. If any severe pain or increasing pain to report to the emergency room immediately for evaluation. All of her questions and concerns were addressed to the best of my ability and shared decision making. She is agreeable to the plan of care. Orders: Orders AMB Urinalysis Dipstick Today R10.2 - Pelvic and perineal pain, Z32.02 - Encounter for test, result negative CT NG by PCR Today N89.8 - Other specified noninflammatory disorders of vagina AMB HCG Urine Test Today R10.2 - Pelvic and perineal pain, Z32.02 - Encounter for test, result negative US pelvic and transvaginal Today R10.2 - Pelvic and perineal pain Bacterial Vaginosis Panel Today N89.8 - Other specified noninflammatory disorders of vagina Coding Level of Care Code Est Pt Level 4 (46904) Diagnoses Pelvic pain R10.2
== END 2023-10-26 14:40 | disposition home or self-care (01) ==
PROVIDERS: PCP Internal Medicine; Visit Provider Advanced Practice Midwife
DX: Z32.02 Encounter for pregnancy test, result negative (principal); R10.2 Pelvic and perineal pain
CPT/HCPCS: 99214

== ENCOUNTER 2023-10-26 13:54 | Outpatient (REF) | payer OTHER, SELFPAY ==
[2023-10-27 04:04] LABS: CT PCR NOT DETECTED (Not Detect.); NG PCR NOT DETECTED (Not Detect.)
[2023-10-27 14:55] LABS: BV Int Neg Control Negative (Negative); BV Int Pos Control Positive (Positive)
== END 2023-10-26 13:55 | disposition home or self-care (01) ==
LOC: HO.LNP 13:54
PROVIDERS: PCP Internal Medicine; Visit Provider Advanced Practice Midwife
DX: N89.8 Other specified noninflammatory disorders of vagina (principal); R10.2 Pelvic and perineal pain; Z32.02 Encounter for pregnancy test, result negative
CPT/HCPCS: 0353U; 81002; 81025; 87480; 87510; 87660; 99212

== ENCOUNTER 2023-11-02 09:16 | Outpatient (REF) | payer OTHER, SELFPAY ==
--- NOTE | ~2023-11-02 | US_ITS ---
EXAMINATION: US PELVIS CLINICAL INFORMATION: Pelvic pain COMPARISON: Pelvic ultrasound August 2018 TECHNIQUE: Ultrasound of the pelvis is performed using both transabdominal and transvaginal transducers along with Doppler. Transvaginal imaging is performed due to inadequate visualization transabdominally. FINDINGS: The uterus is retroverted and retroflexed and measures 9.4 x 5.5 x 6.3 cm in dimension. No focal uterine lesion. Endometrial thickness is normal measuring 0.9 cm. The right ovary is enlarged and measures 9.6 x 6.4 x 7.2 cm. There is a 8.3 x 5.7 x 7 cm simple right ovarian cyst. This is new 2018 exam. Arterial and venous flow is documented to the right ovary. There is no evidence of torsion. Left ovary measures 4.9 x 2.8 x 3.2 cm. There is a 2.3 x 1.7 x 2.1 cm simple left ovarian cyst or dominant follicle. There is no fluid in the pelvis. US/US pelvic and transvaginal IMPRESSION: 8.3 x 5.7 x 7 cm simple right ovarian cyst new from August 2018 exam. Findings likely represent a probably benign cyst. Follow-up ultrasound in 3-6 months recommended.
== END 2023-11-02 09:17 | disposition home or self-care (01) ==
LOC: HO.HMGCX 09:16
PROVIDERS: PCP Internal Medicine; Visit Provider Advanced Practice Midwife
DX: R10.2 Pelvic and perineal pain (principal)
CPT/HCPCS: 76830; 76856

== ENCOUNTER 2023-12-17 13:26 | Outpatient (AMB) | payer SELFPAY ==
--- NOTE | 2023-12-17 13:46 | AM.OFFWIN_ITS ---
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 Patient is reporting symptoms of increased burning on urination. Symptoms present for the past few days. No fevers or chills. No symptoms of back pain. [facility] Medical History (Updated 11/02/23 @ 16:21 by Elli Reddy CNM) Right ovarian cyst Adopted Jesusita-Ish syndrome History of anemia Surgical History History of eye surgery Family History Mother No problems noted. Father No problems noted. 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 Sexual orientation: Straight/Heterosexual Gender identity: Female Cognitive needs: No Hearing needs: No Vision needs: Yes Female Reproductive History Menstrual Age of Menarche: 15 Physical Exam Vital Signs: Last Vital Signs Temp 98.0 F 12/17/23 13:47 Pulse 75 12/17/23 13:47 BP 120/68 12/17/23 13:47 Pulse Ox 99 12/17/23 13:47 Oxygen Delivery Method Room Air 12/17/23 13:47 BMI result Body Mass Index 19.4 General: Yes Bimanual renal exam normal bilaterally and Yes no CVA tenderness Back/Spine/Pelvis Back: no CVA tenderness Results AMB Urinalysis, Automated UA Leukoctes 500 Robyn/uL Last Edit by TAMMIE Burton on 12/17/23 14: 00 UA Nitrite Negative Last Edit by TAMMIE Burton on 12/17/23 14:00 UA Urobilinogen 0.2 mg/dL Last Edit by TAMMIE Burton on 12/17/23 1 4:00 UA Protein 30 mg/dL Last Edit by Cassandra Copeland CCM on 12/17/23 14:00 UA pH 6.0 Last Edit by Cassandra Copeland CCM on 12/17/23 14:00 UA Blood 200 Clint/uL Last Edit by Cassandra Copeland CCM on 12/17/23 14:00 UA Specific [place] 1.020 Last Edit by TAMMIE Burton on 12/17/23 14:00 UA Ketone Negative Last Edit by TAMMIE Burton on 12/17/23 14:00 UA Bilirubin 0 mg/dL Last Edit by Cassandra Copeland [facility] on 12/17/23 14:00 UA Glucose 0 mg/dL Last Edit [facility] 12/17/[facility] 14:00 Results Reviewed Results Reviewed: Laboratory Last Values Urine pH (Auto) 6.0 12/17/23 13:38 Specific [place] (Auto) 1.020 12/17/23 13:38 Urine Protein (Auto) 30 mg/dL 12/17/23 13:38 Glucose (UA)(Auto) 0 mg/dL 12/17/23 13:38 Urine Ketones (Auto) Negative 12/17/23 13:38 Urine Blood (Auto) 200 Clint/uL 12/17/23 13:38 Urine Nitrite (Auto) Negative 12/17/23 13:38 Urine Bilirubin (Auto) 0 mg/dL 12/17/23 13:38 Urine Urobilinogen (Auto) 0.2 mg/dL 12/17/23 13:38 Leukocyte Esterase (Auto) 500 Robyn/uL 12/17/23 13:38 Assessment & Plan Assessment & Plan (1) Urinary tract infection: Code(s): N39.0 - Urinary tract infection, site not specified Plan: Take antibiotics and Pyridium as directed. Increase fluid intake. If symptoms of burning persist, new onset of fever or lower back pain, to follow-up at the clinic. Orders: Orders AMB Urinalysis Automated Today Z13.9 - Encounter for screening, unspecified Coding Level of Care Code Est Pt Level 3 (22066) Diagnoses Urinary tract infection N39.0
[2023-12-17 13:47] VITALS: BP 120/68; PULSE 75; TEMP 36.7; O2SAT 99; BMI 19.4
== END 2023-12-17 16:00 | disposition home or self-care (01) ==
PROVIDERS: PCP Internal Medicine; Visit Provider Internal Medicine
DX: N39.0 Urinary tract infection, site not specified (principal)
CPT/HCPCS: 81003; 99213

== ENCOUNTER 2024-03-15 16:23 | Emergency (ER) | payer OTHER, SELFPAY ==
--- NOTE | ~2024-03-15 | US_ITS ---
EXAMINATION: US PELVIS CLINICAL INFORMATION: Right pelvic pain. History of large cyst. COMPARISON: None available. TECHNIQUE: Ultrasound of the pelvis is performed using both transabdominal and transvaginal transducers along with Doppler. Transvaginal imaging is performed due to inadequate visualization transabdominally. FINDINGS: Uterus: The uterus is retroverted, retroflexed and measures 11.3 x 5.6 x 5.3 cm. The double wall endometrial thickness is 9.0 mm. The uterus is smooth in contour and has normal myometrial echogenicity. No visible fibroid. Adnexa: Both ovaries are visualized. There is normal color flow to the adnexa. There is no ovarian torsion. There is no pelvic ascites or fluid collection. Right ovary measures 8.1 x 5.4 x 7.4 CM and volume 169.5 ml. There is anechoic simple cyst measuring 6.8 x 5.2 x 7.1 cm. Previously right ovary measures 6.8 x 5.2 x 7.1 cm. Left ovary measures 4.3 x 2.8 x 3.4 cm and volume 21.4 mL. There is anechoic cyst measuring 3.2 x 1.6 x 2.5 cm. Previously left ovary measures 4.9 x 2.8 x 3.2 cm. There is normal arterial and venous flow seen in both ovaries on Doppler exam. No suspicion for torsion. US/US pelvic complete IMPRESSION: Unremarkable uterus. Simple bilateral ovarian cysts. Minimal free fluid in the anterior cul-de-sac.
--- NOTE | ~2024-03-15 | US_ITS ---
EXAMINATION: US PELVIS CLINICAL INFORMATION: Right pelvic pain. History of large cyst. COMPARISON: None available. TECHNIQUE: Ultrasound of the pelvis is performed using both transabdominal and transvaginal transducers along with Doppler. Transvaginal imaging is performed due to inadequate visualization transabdominally. FINDINGS: Uterus: The uterus is retroverted, retroflexed and measures 11.3 x 5.6 x 5.3 cm. The double wall endometrial thickness is 9.0 mm. The uterus is smooth in contour and has normal myometrial echogenicity. No visible fibroid. Adnexa: Both ovaries are visualized. There is normal color flow to the adnexa. There is no ovarian torsion. There is no pelvic ascites or fluid collection. Right ovary measures 8.1 x 5.4 x 7.4 CM and volume 169.5 ml. There is anechoic simple cyst measuring 6.8 x 5.2 x 7.1 cm. Previously right ovary measures 6.8 x 5.2 x 7.1 cm. Left ovary measures 4.3 x 2.8 x 3.4 cm and volume 21.4 mL. There is anechoic cyst measuring 3.2 x 1.6 x 2.5 cm. Previously left ovary measures 4.9 x 2.8 x 3.2 cm. There is normal arterial and venous flow seen in both ovaries on Doppler exam. No suspicion for torsion. US/US pelvic ovarian doppler IMPRESSION: Unremarkable uterus. Simple bilateral ovarian cysts. Minimal free fluid in the anterior cul-de-sac.
[2024-03-15 16:35] VITALS: BP 126/83; PULSE 85; RESP 20; TEMP 37.2; O2SAT 100; BMI 19.8
--- NOTE | 2024-03-15 16:36 | ED.ABDPAIN ---
HPI - Abdominal Pain General Chief Complaint: Abdominal Pain Stated Complaint: Abdominal pain Time Seen by Provider: 03/15/24 23:13 Source: patient Mode of arrival: ambulatory Limitations: no limitations History of Present Illness ED Provider: Tremayne Kearney PA-C HPI narrative: 28-year-old female with history of ovarian cyst on the right side measuring 8.3 x 5.7 x 7cm on US in October who presents to the ER for evaluation of worsening right lower pelvic pain for the last several weeks, acutely worse today. She endorses worsening pain in the area before her menstrual cycle starts. LMP February 12. Denies chance of , last sexual activity 6 months ago. Had some white vaginal discharge last night. No vomiting or fevers. No vaginal discharge. No pain w/ ambulation MD elicited complaint: abdominal pain Pertinent past history: other (ovarian cyst) Onset (ago): week(s) Pain Consistency: intermittent Location: suprapubic Exacerbating factors: nothing Relieving factors: nothing Associated symptoms: denies other symptoms Related Data Date of Last Menstrual Period: 02/13/24 Home Medications ?Medication ?Instructions ?Recorded ?Confirmed etonogestrel 68 mg subdermal subdermal 07/20/22 implant (Nexplanon) Previous Rx's ?Medication ?Instructions ?Recorded phenazopyridine 200 mg tablet 200 mg PO TID 3 days #9 tabs 12/17/23 (Pyridium) sulfamethoxazole 800 1 tab PO BID 5 days #10 tabs 12/17/23 mg-trimethoprim 160 mg tablet (Bactrim DS) Allergies Allergy/AdvReac Type Severity Reaction Status Date / Time No Known Allergies Allergy Verified 03/15/24 16:38 [No Known Allergies*] Review of Systems Review of Systems Yes all other systems are reviewed and are negative [facility] Past Medical History Medical History (Updated 03/17/24 @ 12:43 by JONNY Bowman) Right ovarian cyst Adopted Jesusita-Ish syndrome History of anemia Surgical History History of eye surgery Date of Last Menstrual Period: 02/13/24 Family History Family History Mother No problems noted. Father No problems noted. 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 Oriented X3. No acute distress. HEENT: normal external inspection Neck: Normal inspection. Neck supple. CVS: Normal heart rate and rhythm. Pulses normal. Respiratory: No respiratory distress. Breath sounds normal. Abdomen: thin, Soft with mild suprapubic tenderness, worse on the right, no palpable mass. pelvic deferred Skin: Skin warm and dry. Normal skin color. Normal skin turgor. No rashes. Extremities: No lower extremity edema. No joint swelling. Neuro/psych: Oriented X 3. grossly normal, nonfocal Medical Decision Making Medical Decision Making MDM Narrative: 28 yo female with known large ovarian cyst presenting with worsening pain. u/s ordered to r/o torsion - no torsion seen. redomonstrated large cyst. UA negative for infection and patient eloped from the ER prior to discussion of results. Differential Diagnosis Differential Diagnoses: The differential diagnosis associated with the presentation includes ovarian cyst, ovarian torsion, UTI, kidney stone, BV, STI, ectopic Lab Data [facility] Lab Attestation statement: I reviewed the patient's lab results. mild anemia 03/15/24 18:04 03/15/24 18:04 Labs: Lab Results 03/15/24 03/15/24 Range/Units 18:04 18:08 WBC 5.6 (4.8-10.8) X10*3/uL RBC 4.05 L (4.20-5.50) X10*6/uL Hgb 10.8 L (12.0-16.0) g/dl Hct 33.0 L (37.0-47.0) % MCV 81.5 (80.0-98.0) fL MCH 26.7 L (27.0-33.0) pg MCHC 32.7 (31.0-35.0) g/dl RDW 13.8 (11.0-16.0) % Plt Count 245 (160-400) X10*3/uL MPV 9.2 L (9.4-12.3) fL Immature Gran % (Auto) 0.4 (0.0-0.4) % Neut % (Auto) 52.2 (45-73) % Lymph % (Auto) 36.3 (20-40) % Lares % (Auto) 9.0 (2-11) % Eos % (Auto) 1.4 (0-4) % Baso % (Auto) 0.7 (0-2) % Lymph # (Auto) 2.0 (1.2-4.9) X10*3/uL Lares # (Auto) 0.5 (0.1-1.2) X10*3/uL Eos # (Auto) 0.1 (0.0-0.4) X10*3/uL Baso # (Auto) 0.0 (0.0-0.2) X10*3/uL Abs Immat Gran (auto) 0.02 (0.00-0.03) X10*3/uL Absolute Neuts (auto) 2.9 (2.0-8.3) x10*3/uL Absolute Nucleated RBC 0.000 (0.0-0.012) X10*3/uL Nucleated RBC % (auto) 0.0 (0.0-0.2) /100WBC Sodium 139 (135-145) mmol/L Potassium 4.2 (3.3-5.1) mmol/L Chloride 107 (96-108) mmol/L Carbon Dioxide 22 (22-29) mmol/L Anion Gap 14 (12-20) BUN 8 L (9-16) mg/dL Creatinine 0.77 (0.5-1.4) mg/dL Estim Creat Clear Calc 103.0 Estimated GFR > 60 Random Glucose 89 (60-115) mg/dL Calcium 9.2 (8.4-10.2) mg/dL Magnesium 1.7 (1.6-2.6) mg/dL Total Bilirubin 1.1 H (0.0-1.0) mg/dL Direct Bilirubin 0.4 (0.0-0.5) mg/dL AST 15 (5-31) U/L ALT 9 (0-31) U/L Alkaline Phosphatase 49 (39-117) U/L Total Protein 7.0 (6.5-8.0) g/dL Albumin 4.2 (3.5-5.0) g/dL Beta HCG, Quant < 2 mIU/mL Urine Color Yellow Urine Appearance Clear Urine pH 8.0 (5.0-9.0) Ur Specific [place] <= 1.005 (1.005-1.025) Urine Protein Negative (Neg-Trace) mg/dL Urine Glucose (UA) Negative (Negative) mg/dL Urine Ketones Negative (Negative) mg/dL Urine Blood Negative (Negative) Urine Nitrite Negative (Negative) Ur Leukocyte Esterase Negative (Negative) Independent Interpretation I performed an independent interpretation of an: Ultrasound Interpretation: large cysts w/ normal flow Radiology Impression Discussion of test interpretation with radiology: I have reviewed the radiologist's reading. Radiologist Impression: EXAMINATION: US PELVIS CLINICAL INFORMATION: Right pelvic pain. History of large cyst. COMPARISON: None available. TECHNIQUE: Ultrasound of the pelvis is performed using both transabdominal and transvaginal transducers along with Doppler. Transvaginal imaging is performed due to inadequate visualization transabdominally. FINDINGS: Uterus: The uterus is retroverted, retroflexed and measures 11.3 x 5.6 x 5.3 cm. The double wall endometrial thickness is 9.0 mm. The uterus is smooth in contour and has normal myometrial echogenicity. No visible fibroid. Adnexa: Both ovaries are visualized. There is normal color flow to the adnexa. There is no ovarian torsion. There is no pelvic ascites or fluid collection. Right ovary measures 8.1 x 5.4 x 7.4 CM and volume 169.5 ml. There is anechoic simple cyst measuring 6.8 x 5.2 x 7.1 cm. Previously right ovary measures 6.8 x 5.2 x 7.1 cm. Left ovary measures 4.3 x 2.8 x 3.4 cm and volume 21.4 mL. There is anechoic cyst measuring 3.2 x 1.6 x 2.5 cm. Previously left ovary measures 4.9 x 2.8 x 3.2 cm. There is normal arterial and venous flow seen in both ovaries on Doppler exam. No suspicion for torsion. US/US pelvic complete IMPRESSION: Unremarkable uterus. Simple bilateral ovarian cysts. Minimal free fluid in the anterior cul-de-sac. External Record Review External record reviewed: Prior outpatient labs and Prior outpatient radiology Prescription Management I considered prescription management with: Pain Medication Chronic Conditions Patient?s care impacted by: Other (ovarian cyst) Critical Care Time Critical Care Time Critical Care Time: No Discharge Plan Discharge Clinical Impression: Ovarian cyst Qualifiers: Laterality: bilateral Qualified Code(s): N83.201 - Unspecified ovarian cyst, right side Patient Disposition: Left W/O Completing Treatment Prescriptions: No Action sulfamethoxazole-trimethoprim [Bactrim DS] 800-160 mg tablet 1 tab PO BID 5 Days Qty: 10 0RF phenazopyridine [Pyridium] 200 mg tablet 200 mg PO TID 3 Days Qty: 9 0RF Nexplanon 68 mg implant subdermal Discharge Date/Time: 03/15/24 23:20
[2024-03-15 18:07] LABS: MANUAL DIFF FLAG NO
[2024-03-15 18:14] LABS: Appearance Urine Clear; Color Urine Yellow; Glucose Urine UA Negative (Negative); Leukocyte Esterase Urine Negative (Negative); Nitrite Urine Negative (Negative); Specific Gravity - Urine <= 1.005 (1.005-1.025); Urine Blood Negative (Negative); Urine Ketones Negative (Negative); Urine Protein Negative (Neg-Trace)
[2024-03-15 18:17] LABS: Basophils Percent Auto 0.7 % (0-2); Eosinophils Absolute Auto 0.1 X10*3/uL (0.0-0.4); Eosinophils Percent Auto 1.4 % (0-4); Hemoglobin 10.8 g/dl (12.0-16.0); Imm Gran Abs Auto 0.02 X10*3/uL (0.00-0.03); Imm Gran Pct Auto 0.4 % (0.0-0.4); Lymphocytes Percent Auto 36.3 % (20-40); Mean Corpuscular HGB Conc 32.7 g/dl (31.0-35.0); Mean Corpuscular Hemoglobin 26.7 pg (27.0-33.0); Mean Corpuscular Volume 81.5 fL (80.0-98.0); Mean Platelet Volume 9.2 fL (9.4-12.3); Monocytes Absolute Auto 0.5 X10*3/uL (0.1-1.2); Neutrophils Absolute Auto 2.9 x10*3/uL (2.0-8.3); Neutrophils Percent Auto 52.2 % (45-73); Platelet Count 245 X10*3/uL (160-400); Red Blood Count 4.05 X10*6/uL (4.20-5.50); Red Cell Distribution Width 13.8 % (11.0-16.0); White Blood Count 5.6 X10*3/uL (4.8-10.8)
[2024-03-15 18:33] LABS: Alanine Aminotransferase 9 U/L (0-31); Albumin Level 4.2 g/dL (3.5-5.0); Alkaline Phosphatase 49 U/L (39-117); Anion Gap 14 (12-20); Aspartate Amino Transferase 15 U/L (5-31); Bilirubin Direct 0.4 mg/dL (0.0-0.5); Bilirubin Total 1.1 mg/dL (0.0-1.0); Blood Urea Nitrogen 8 mg/dL (9-16); Calcium 9.2 mg/dL (8.4-10.2); Carbon Dioxide 22 mmol/L (22-29); Chloride 107 mmol/L (96-108); Estimated Glomerular Filt Rate > 60; Glucose Random 89 mg/dL (60-115); HCG Quantitative < 2 mIU/mL; Magnesium 1.7 mg/dL (1.6-2.6); Potassium 4.2 mmol/L (3.3-5.1); Sodium 139 mmol/L (135-145)
--- NOTE | 2024-03-15 23:04 | PC.NURSE ---
pt leaving due to wait times to see a provider. visitor that is accompanying patient vocalized that they have been in a room for almost 4hrs and felt as if no one came in to see patient or provided care. this RN has rounded on patient as well as tech. visitor himself as spoken to this RN several times since patient has been in the room. all questions to my knowledge had been answered. visitor states this isn't worth it anymore and we are leaving. kiln charger is aware. pt leaving the ER.
[2024-03-15 23:17] VITALS: RESP 16; O2SAT 98
== END 2024-03-15 23:20 | disposition left against medical advice (07) ==
PROVIDERS: Physician Assistant; Emergency Provider Emergency Medicine; PCP Internal Medicine
DX: N83.201 Unspecified ovarian cyst, right side (principal); R10.2 Pelvic and perineal pain
CPT/HCPCS: 36415; 76856; 80048; 80076; 81003; 83735; 84702; 85025; 93975; 99283; 99284

== ENCOUNTER 2024-03-19 09:17 | Outpatient (AMB) | payer SELFPAY ==
--- NOTE | 2024-03-19 09:18 | MHC.OFFWIV ---
Intake Vital Signs 03/19/24 09:19 Height 5 ft 8 in BP 142/80 H Blood Pressure Location Rt brachial Position Sitting Pulse 85 Pulse Source Pulse Oximeter Temp 97.9 F Temp Source Oral Pulse Oximetry (%) 95 Intake Visit Reasons: EP AB Pain Patient Tobacco Use Status: Never used Tobacco Allergies No Known Allergies [No Known Allergies*] Allergy (Verified 03/19/24 09:20) Do you need a note to return to daycare/school/sports/work: Yes HPI HPI Comments History of Present Illness Details Patient is a 28-year-old female complaining of worsening lower abdominal pain x months. In October, the patient had an ultrasound that showed a right-sided simple cyst. She states the pain has gotten worse so she returned to the emergency department on March 15. Had an ultrasound done but left before she could get the results because it was taking too long. She states she does not have any bleeding but does have some brown discharge. She states she is not sexually active. She denies any itching, burning or pain with urination or fevers. [facility] Medical History (Updated 03/19/24 @ 09:47 by Dari Alan PA-C) Right ovarian cyst Adopted Jesusita-Ish syndrome History of anemia Surgical History History of eye surgery Family History Mother No problems noted. Father No problems noted. Social History Household Members: Family Housing: Other Alcohol intake: current Alcohol intake frequency: holidays/special occasions only Patient Tobacco Use Status: Never used Tobacco e-Cigarette/Vaping Use: Former Use Second Hand Smoke Exposure: No Current occupational status: employed Current occupation: [employer] Sexual orientation: Straight/Heterosexual Gender identity: Female Cognitive needs: No Hearing needs: No Vision needs: Yes Female Reproductive History Menstrual Age of Menarche: 15 Review of Systems Const All systems reviewed & are unremarkable except as noted in HPI and below Physical Exam Vital Signs: Last Vital Signs Temp 97.9 F 03/19/24 09:19 Pulse 85 03/19/24 09:19 BP 142/80 H 03/19/24 09:19 Pulse Ox 95 03/19/24 09:19 Const Other: teary General: cooperative, healthy appearing and well developed Orientation/consciousness: patient oriented x3 Limitations: other limitations (difficulty walking 2/2 pain) HEENT Head: Yes normal to inspection Eyes General: appearance normal, both eyes and all related structures Neck Neck: Yes normal visual inspection and Yes full ROM Resp Effort & Inspection: normal respiratory effort and able to speak in complete sentences GI Inspection: Yes normal to inspection Palpation (GI): Soft to palpation and Tenderness to palpation present (GI) in the LLQ, in the RLQ and suprapubicly Skin General skin exam: no rashes or lesions noted Neuro General: patient oriented x3 Extrem General: Yes normal to inspection Assessment & Plan Assessment & Plan (1) Bilateral ovarian cysts: Code(s): N83.201 - Unspecified ovarian cyst, right side; N83.202 - Unspecified ovarian cyst, left side Plan: Reviewed results of ultrasound with patient, as she has had worsening lower abdominal pain since Sunday and is having difficulty ambulating due to the pain. I have sent her to the emergency department to rule out ovarian torsion and come up with a proper plan with OBGYN. Educated the patient not to leave the emergency department before she has results and a plan in place with OBGYN. Plan see above Coding Level of Care Code Est Pt Level 5 (65789) Diagnoses Bilateral ovarian cysts N83.201; N83.202
[2024-03-19 09:19] VITALS: BP 142/80; PULSE 85; TEMP 36.6; O2SAT 95
== END 2024-03-19 09:49 | disposition home or self-care (01) ==
PROVIDERS: PCP Internal Medicine; Visit Provider Physician Assistant
DX: N83.201 Unspecified ovarian cyst, right side (principal); N83.202 Unspecified ovarian cyst, left side
CPT/HCPCS: 99215

== ENCOUNTER 2024-03-19 10:29 | Emergency (ER) | payer OTHER, SELFPAY ==
--- NOTE | ~2024-03-19 | US_ITS ---
EXAMINATION: US PELVIS CLINICAL INFORMATION: Worsening pelvic pain. COMPARISON: Pelvic ultrasound 03/15/2024. TECHNIQUE: Transabdominal ultrasound of the pelvis was performed. Patient refused transvaginal examination. FINDINGS: Limited transabdominal examination. Retroverted retroflexed uterus measuring 10.6 x 5.7 x 7.1 cm. No uterine lesion. The endometrium measures 0.3 cm in thickness without discrete focal abnormality. Asymmetric enlargement of the right ovary which is decreased compared to most recent prior. Specifically, the right ovary measures 5.5 x 4.3 x 3.6 cm volume of 44.6 mL, previously 170 mL and the left ovary measures 4.6 x 3 x 3.1 cm volume of 22.4 mL, not significantly changed compared to prior. There is a 4.4 x 2.2 x 1.7 cm cyst in the right ovary with elongated/collapsed shape, previously measuring 6.8 x 5.2 x 7 cm, there are no associated septations nor internal vascularity within this simple appearing cyst. There is an additional simple appearing cyst in the left ovary measuring 2.3 x 1.9 x 2 cm, previously 3.2 x 1.6 x 2.5 cm. These cysts are almost certainly benign, for which no routine imaging follow-up is recommended in an asymptomatic patient. There is preserved flow on color and spectral Doppler at the moment of this examination in both ovaries. Small amount of free fluid in the right adnexa and cul-de-sac. US/US pelvic ovarian doppler IMPRESSION: Limited transabdominal examination. Decreased enlargement of the right ovary as well as decreased size of a right ovarian cyst, suggestive of partial rupture of the cyst. There is overall a normal morphology of the right ovary with preserved flow at the moment of this examination arguing against the presence of complete or significant torsion. However, the presence of a partial torsion and torsion/detorsion cannot be entirely excluded in the appropriate clinical context. Clinical correlation and short-term follow-up pelvic ultrasound is recommended.
[2024-03-19 10:49] VITALS: BP 120/73; PULSE 69; RESP 16; TEMP 36.4; O2SAT 97; BMI 18.8
--- NOTE | 2024-03-19 11:00 | ED_ITS ---
HPI - Female Genitourinary General Chief complaint: Urogenital-Female Stated complaint: abd pain Time Seen by Provider: 03/19/24 14:03 Source: patient and old records reviewed Mode of arrival: ambulatory Limitations: no limitations History of Present Illness ED Provider: GLORIA COLÓN Narrative: 28 yo female with known R sided ovarian cyst just seen on 03/15 - no torsion seen on that visit but it measured 6.8x5.2x7.1 no fluid seen she eloped prior to results. It looks like she has had a cyst since October she comes in today with c/o feeling okay yesterday but this AM went to work and had intense abdominal pain and then now has lingering abdominal pain. She denies n/v. She has not had bleeding. She follows with OBGYN here and is going to call them. She is on nexplanon. Her pain has improved now. MD elicited complaint: pelvic pain Pertinent past history: other (ovarian cyst) Onset (ago): day(s) (few days ago returned this AM) Location of symptoms: RLQ and pelvis Severity: moderate Quality of pain: aching Consistency: constant Vaginal discharge: none Vaginal bleeding: none Exacerbating factors: none Relieving factors: none Associated symptoms: denies other symptoms Treatment prior to arrival: none Related Data Home Medications ?Medication ?Instructions ?Recorded ?Confirmed etonogestrel 68 mg subdermal subdermal 07/20/22 implant (Nexplanon) Previous Rx's ?Medication ?Instructions ?Recorded nitrofurantoin 100 mg PO BID 5 days #10 caps 03/19/24 monohydrate/macrocrystals 100 mg capsule (Macrobid) Allergies Allergy/AdvReac Type Severity Reaction Status Date / Time No Known Allergies Allergy Verified 03/19/24 10:52 [No Known Allergies*] Review of Systems 2 Review of Systems: Constitutional : No Weight loss, No Fever, No Chills ENT/Mouth : No sore throat, No Rhinorrhea Eyes: No Swelling, No Redness Cardiovascular : No Chest Pain, No SOB, NoEdema Respiratory : No Cough, No Sputum, No Wheezing Gastrointestinal : no Nausea, no Vomiting, no Diarrhea, positive abdominal Pain, No Hematochezia, No Melena Genitourinary : No Dysuria, No Urinary Frequency, No Hematuria, No Urgency Musculoskeletal : No joint pain, No Myalgias, No Joint Swelling Skin : No Skin Lesions, No rash Neuro : No Weakness, No Numbness, No Dizziness, No Headache Psych : No Anxiety/Panic, No Depression All other systems reviewed and are negative. [facility] Past Medical History Attestation statement: The following information was validated with the patient. Source: old records reviewed Medical History Right ovarian cyst Adopted Jesusita-Ish syndrome History of anemia Surgical History History of eye surgery Family History Family History Mother No problems noted. Father No problems noted. Social History Social History Household Members: Family Housing: Other Alcohol intake: current Alcohol intake frequency: holidays/special occasions only Patient Tobacco Use Status: Never used Tobacco e-Cigarette/Vaping Use: Former Use Second Hand Smoke Exposure: No Advance Directives: No Current occupational status: employed Current occupation: [employer] Sexual orientation: Straight/Heterosexual Gender identity: Female Cognitive needs: No Hearing needs: No Vision needs: Yes Physical Exam 2 Vital Signs: Vital Signs: Last Vital Signs Temp 97.6 F 03/19/24 10:49 Pulse 69 03/19/24 10:49 Resp 16 03/19/24 10:49 BP 120/73 03/19/24 10:49 Pulse Ox 97 03/19/24 10:49 O2 Del Method Room Air 03/19/24 10:49 BMI result Body Mass Index 18.8 Appearance: Alert. Oriented X3. No acute distress. Eyes: Pupils equal, round and reactive to light. ENT: Pharynx normal. Neck: Normal inspection. Neck supple. CVS: Normal heart rate and rhythm. Pulses normal. Respiratory: No respiratory distress. Breath sounds normal. Abdomen: Soft and nontender. no rebound Skin: Skin warm and dry. Normal skin color. Normal skin turgor. Extremities: No lower extremity edema. No calf ttp Neuro: Oriented X 3. No motor deficit. No sensory deficit. Course Course Course Narrative: This is a rapid medical exam performed by Yvonne Melchor NP: Additional HPI, ROS, PE not included below will be deferred to primary provider. Patient is a 28-year-old female presenting with pelvic pain, seen here Sat but left prior to completing visit. Pain increasing, advised by UC to return. Plan: labs, UA, U/S Reevaluation(s) Reevaluation #1: feels better stable for DC Reevaluation #2: + UA but no symptoms will start on 5 days of macrobid given the amount of wbc and bacteria Medications Administered Discontinued Medications Generic Name Dose Route Start Last Admin Trade Name Senait PRN Reason Stop Dose Admin Sodium Chloride 1,000 mls @ 999 mls/hr 03/19/24 14:22 03/19/24 14:44 Ns IV 03/19/24 15:22 999 mls/hr .Q1H1M ONE Administration Ketorolac Tromethamine 15 mg 03/19/24 14:22 03/19/24 14:45 Ketorolac Tromethamine 15 Mg/Ml Vial IVPUSH 03/19/24 14:23 15 mg ONCE ONE Administration Medical Decision Making Medical Decision Making MDM Narrative: 28 yo female with PMH of ovarian cysts on nexplanon just seen and dx with persistent cyst on R side has acute exacerbation of R sided pain on way to work this AM - pain has lingered but not as severe and her exam is very benign. At this time low susp for clinical torsion but suspect rupture. Labs, toradol, US ordered Differential Diagnosis Differential Diagnoses: The differential diagnosis associated with the presentation includes pelvic pain, cyst rupture low susp for torsion Admission/Observation Consideration of admission/observation: Escalation of care including admission/observation considered H/H stable can be managed as outpatient Lab Data MDM Lab Attestation statement: I reviewed the patient's lab results. 03/19/24 11:09 03/19/24 11:09 Labs: Lab Results 03/19/24 03/19/24 Range/Units 11:09 14:52 WBC 5.0 (4.8-10.8) X10*3/uL RBC 4.33 (4.20-5.50) X10*6/uL Hgb 11.4 L (12.0-16.0) g/dl Hct 35.4 L (37.0-47.0) % MCV 81.8 (80.0-98.0) fL MCH 26.3 L (27.0-33.0) pg MCHC 32.2 (31.0-35.0) g/dl RDW 13.8 (11.0-16.0) % Plt Count 242 (160-400) X10*3/uL MPV 9.7 (9.4-12.3) fL Immature Gran % (Auto) 0.2 (0.0-0.4) % Neut % (Auto) 68.3 (45-73) % Lymph % (Auto) 23.5 (20-40) % Leake % (Auto) 7.0 (2-11) % Eos % (Auto) 0.4 (0-4) % Baso % (Auto) 0.6 (0-2) % Lymph # (Auto) 1.2 (1.2-4.9) X10*3/uL [place]ake # (Auto) 0.4 (0.1-1.2) X10*3/uL Eos # (Auto) 0.0 (0.0-0.4) X10*3/uL Baso # (Auto) 0.0 (0.0-0.2) X10*3/uL Abs Immat Gran (auto) 0.01 (0.00-0.03) X10*3/uL Absolute Neuts (auto) 3.4 (2.0-8.3) x10*3/uL Absolute Nucleated RBC 0.000 (0.0-0.012) X10*3/uL Nucleated RBC % (auto) 0.0 (0.0-0.2) /100WBC Sodium 138 (135-145) mmol/L Potassium 4.4 (3.3-5.1) mmol/L Chloride 108 (96-108) mmol/L Carbon Dioxide 22 (22-29) mmol/L Anion Gap 12 (12-20) BUN 8 L (9-16) mg/dL Creatinine 0.80 (0.5-1.4) mg/dL Estim Creat Clear Calc 102.9 Estimated GFR > 60 Random Glucose 92 (60-115) mg/dL Calcium 9.3 (8.4-10.2) mg/dL Total Bilirubin 1.4 H (0.0-1.0) mg/dL AST 18 (5-31) U/L ALT 9 (0-31) U/L Alkaline Phosphatase 44 (39-117) U/L Total Protein 7.3 (6.5-8.0) g/dL Albumin 4.3 (3.5-5.0) g/dL Beta HCG, Quant < 2 mIU/mL Urine Color Yellow Urine Appearance Turbid Urine pH 6.5 (5.0-9.0) Ur Specific [place] 1.020 (1.005-1.025) Urine Protein Trace (Neg-Trace) mg/dL Urine Glucose (UA) Negative (Negative) mg/dL Urine Ketones 15 (Negative) mg/dL Urine Blood Trace H (Negative) Urine Nitrite Negative (Negative) Ur Leukocyte Esterase Small (1+) H (Negative) Urine RBC 11-20 H (0-2) /HPF Urine WBC >50 H (0-5) /HPF Ur Squamous Epith Cells >20 (0-2) /HPF Urine Bacteria 4+ (None Seen) Hyaline Casts >20 (0-2) /LPF Independent Interpretation I performed an independent interpretation of an: Ultrasound (partial cyst rupture) Radiology Impression Discussion of test interpretation with radiology: I have reviewed the radiologist's reading. Independent Historian Clinical information obtained from an independent historian. History obtained from or confirmed by: Parent External Record Review External record reviewed: Office record Prescription Management I considered prescription management with: Pain Medication Discharge Plan Discharge Clinical Impression: Ruptured ovarian cyst, Bacteria in urine Patient Disposition: Home, Self-Care Instructions: Ovarian Cyst (ED) Additional Instructions: pelvic rest - no strenuous activity, lifting, intercourse for the next 1 week return for worsening pain, fevers, dizziness, fainting or any other concerns follow up as soon as possible with your OBGYN you have a fair amount of bacteria in the urine and at this time will put on urinary treatment - complete course return for any worsening symptoms or concerns - fevers, vomiting, back pain. Prescriptions: New nitrofurantoin monohyd/m-cryst [Macrobid] 100 mg capsule 100 mg PO BID 5 Days Qty: 10 0RF Rx Instructions: must administer with a meal/food No Action Nexplanon 68 mg implant subdermal Stand Alone Forms: Work/School Release Print Language: Portuguese
[2024-03-19 11:22] LABS: MANUAL DIFF FLAG NO
[2024-03-19 11:26] LABS: Basophils Percent Auto 0.6 % (0-2); Eosinophils Percent Auto 0.4 % (0-4); Hematocrit 35.4 % (37.0-47.0); Hemoglobin 11.4 g/dl (12.0-16.0); Imm Gran Abs Auto 0.01 X10*3/uL (0.00-0.03); Imm Gran Pct Auto 0.2 % (0.0-0.4); Lymphocytes Absolute Auto 1.2 X10*3/uL (1.2-4.9); Lymphocytes Percent Auto 23.5 % (20-40); Mean Corpuscular HGB Conc 32.2 g/dl (31.0-35.0); Mean Corpuscular Hemoglobin 26.3 pg (27.0-33.0); Mean Corpuscular Volume 81.8 fL (80.0-98.0); Mean Platelet Volume 9.7 fL (9.4-12.3); Monocytes Absolute Auto 0.4 X10*3/uL (0.1-1.2); Neutrophils Absolute Auto 3.4 x10*3/uL (2.0-8.3); Neutrophils Percent Auto 68.3 % (45-73); Platelet Count 242 X10*3/uL (160-400); Red Blood Count 4.33 X10*6/uL (4.20-5.50); Red Cell Distribution Width 13.8 % (11.0-16.0)
[2024-03-19 11:49] LABS: Alanine Aminotransferase 9 U/L (0-31); Albumin Level 4.3 g/dL (3.5-5.0); Alkaline Phosphatase 44 U/L (39-117); Anion Gap 12 (12-20); Aspartate Amino Transferase 18 U/L (5-31); Blood Urea Nitrogen 8 mg/dL (9-16); Calcium 9.3 mg/dL (8.4-10.2); Carbon Dioxide 22 mmol/L (22-29); Chloride 108 mmol/L (96-108); Creatinine Clr Calc Pharmacy 102.9; Estimated Glomerular Filt Rate > 60; Glucose Random 92 mg/dL (60-115); Potassium 4.4 mmol/L (3.3-5.1); Sodium 138 mmol/L (135-145); Total Protein 7.3 g/dL (6.5-8.0)
[2024-03-19 11:50] LABS: HCG Quantitative < 2 mIU/mL
[2024-03-19 11:56] LABS: Bilirubin Total 1.4 mg/dL (0.0-1.0)
[2024-03-19] MEDS: 0.9 % Sodium Chloride 1,000 ML 999 ML IV (14:44)
[2024-03-19] MEDS: Ketorolac Tromethamine 15 MG/ML VIAL IVPUSH (14:45)
[2024-03-19 15:13] LABS: Appearance Urine Turbid; Color Urine Yellow; Glucose Urine UA Negative (Negative); Leukocyte Esterase Urine Small (1+) (Negative); Nitrite Urine Negative (Negative); PH 6.5 (5.0-9.0); UMIC TRIGGER UACC YES; Urine Blood Trace (Negative); Urine Ketones 15 mg/dL (Negative); Urine Protein Trace mg/dL (Neg-Trace)
[2024-03-19 15:31] LABS: Bacteria Urine 4+ (None Seen); Hyaline Casts Urine >20 /LPF (0-2); Squamous Epithelial Cell Urine >20 /HPF (0-2); UACC Culture Trigger YES; WBC Urine >50 /HPF (0-5)
[2024-03-19 15:54] VITALS: BP 130/77; PULSE 77; RESP 14; TEMP 36.8; O2SAT 98
== END 2024-03-19 15:56 | disposition home or self-care (01) ==
PROVIDERS: Registered Nurse Emergency; Emergency Provider Emergency Medicine; PCP Internal Medicine
DX: N83.201 Unspecified ovarian cyst, right side (principal); K66.1 Hemoperitoneum; R10.2 Pelvic and perineal pain
CPT/HCPCS: 36415; 76856; 80053; 81001; 84702; 85025; 87086; 93975; 96374; 99283; 99284; J1885

== ENCOUNTER 2024-10-27 09:53 | Emergency (ER) | payer SELFPAY ==
[2024-10-27 10:17] VITALS: BP 119/72; PULSE 117; RESP 18; TEMP 37.3; O2SAT 100; BMI 18.8
--- NOTE | 2024-10-27 10:17 | ED_ITS ---
HPI - URI/Sore Throat General Chief Complaint: General Medical Stated Complaint: uti chills cough headache vaginal bleeding Time Seen by Provider: 10/27/24 11:15 Source: patient and old records reviewed Mode of arrival: ambulatory Limitations: no limitations History of Present Illness ED Provider: GLORIA COLÓN Narrative: 29 yo female with PMH of anemia, justa ish syndrome notes on Sunday started to feel sick and achy, increased cough and headaches. Headache occurred at rest no trauma, no thinners. Patient feels subj fevers and chills. 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 No n/v able to eat and drink. MD elicited complaint: cough Onset (ago): day(s) (3) Consistency: intermittent Severity: moderate Description of mucous: clear Able to tolerate fluids by mouth: Yes Exacerbating factors: swallowing and exertion Relieving factors: nothing Associated symptoms: fever, chills, headache, sore throat, cough and dysuria Treatments prior to arrival: none Related Data Home Medications ?Medication ?Instructions ?Recorded ?Confirmed etonogestrel 68 mg subdermal subdermal 07/20/22 implant (Nexplanon) Previous Rx's ?Medication ?Instructions ?Recorded nitrofurantoin 100 mg PO BID 5 days #10 caps 03/19/24 monohydrate/macrocrystals 100 mg capsule (Macrobid) ondansetron 4 mg disintegrating 4 mg PO Q8H PRN nausea and 10/27/24 tablet vomiting #20 tabs Allergies Allergy/AdvReac Type Severity Reaction Status Date / Time No Known Allergies Allergy Verified 10/27/24 10:20 [No Known Allergies*] Review of Systems Review of Systems: Constitutional : No Fever, pos Chills, pos Fatigue ENT/Mouth : No sore throat, No Rhinorrhea Eyes: No Eye Pain, No Swelling, No Redness Cardiovascular : No Chest Pain, No SOB, No Dyspnea on Exertion Respiratory : No Cough, No Sputum Gastrointestinal : No Nausea, No Vomiting, No Diarrhea, No abdominal Pain Genitourinary : pos Dysuria, No Urinary Frequency, No Hematuria,pos irregular spotting Musculoskeletal : No joint pain, No Myalgias, No Joint Swelling Skin : No Skin Lesions, No rash Neuro : No Weakness, No Numbness, No Dizziness, positive Headache All other systems reviewed and are negative [facility] Past Medical History Attestation statement: The following information was validated with the patient. Source: old records reviewed Medical History Right ovarian cyst Adopted Justa-Ish syndrome History of anemia Surgical History History of eye surgery Family History Family History Mother No problems noted. Father No problems noted. Social History Social History Household Members: Family Housing: Other Alcohol intake: current Alcohol intake frequency: holidays/special occasions only Patient Tobacco Use Status: Never used Tobacco e-Cigarette/Vaping Use: Former Use Second Hand Smoke Exposure: No Do you have a plan to hurt others: No Plan Current occupational status: employed Current occupation: [employer] Sexual orientation: Straight/Heterosexual Gender identity: Female Cognitive needs: No Hearing needs: No Vision needs: Yes Physical Exam Vital Signs: Vital Signs: Last Vital Signs Temp 99.1 F 10/27/24 10:17 Pulse 117 H 10/27/24 10:17 Resp 18 10/27/24 10:17 BP 119/72 10/27/24 10:17 Pulse Ox 100 10/27/24 10:17 O2 Del Method Room Air 10/27/24 10:17 BMI result Body Mass Index 18.8 Appearance: Alert. Oriented X3. No acute distress. Eyes: Pupils equal, round and reactive to light. ENT: Pharynx normal. Neck: Normal inspection. Neck supple. CVS: Normal heart rate and rhythm. Pulses normal. Respiratory: No respiratory distress. Breath sounds normal. Abdomen: Soft and nontender. no CVA ttp Skin: Skin warm and dry. Normal skin color. Normal skin turgor. Extremities: No lower extremity edema. No calf ttp Neuro: Oriented X 3. No motor deficit. No sensory deficit. CN2-12 intact Medical Decision Making Medical Decision Making MDM Narrative: 29 yo female with PMH of anemia, justa ish syndrome here with viral like ill ness for 3 days and worsening headaches, symptoms along with upper respiratory symptoms at this time labs, viral panel, UA and CTNG she is not toxic appearing no CVA ttp and no n/v or fever right now doubt stone or pyelonephritis. Differential Diagnosis Differential Diagnoses: The differential diagnosis associated with the presentation includes UTI, viral syndrome, strep throat Admission/Observation Consideration of admission/observation: Escalation of care including admission/observation considered tolerating PO stable for DC Lab Data [facility] Lab Attestation statement: I reviewed the patient's lab results. out of window for tamiflu Labs: Lab Results 10/27/24 10/27/24 Range/Units 10:53 11:58 Urine Color Dark Yellow Urine Appearance Cloudy Urine pH 6.0 (5.0-9.0) Ur Specific [place] >= 1.030 H (1.005-1.025) Urine Protein 30 (1+) H (Neg-Trace) mg/dL Urine Glucose (UA) Negative (Negative) mg/dL Urine Ketones 15 (Negative) mg/dL Urine Blood Trace H (Negative) Urine Nitrite Negative (Negative) Ur Leukocyte Esterase Trace H (Negative) Urine RBC 3-5 H (0-2) /HPF Urine WBC 0-5 (0-5) /HPF Ur Squamous Epith Cells >20 (0-2) /HPF Urine Bacteria 2+ (None Seen) Hyaline Casts 0-2 (0-2) /LPF Urine Test NEGATIVE (NEGATIVE) Influenza Type A (PCR) POSITIVE A (Negative) Influenza Type B (PCR) NEGATIVE (Negative) RSV RNA Qual (PCR) NEGATIVE (Negative) SARS-CoV-2 RNA (RT-PCR) POSITIVE A (Negative) S. pyogenes GrpA [place] Negative (Negative) External Record Review External record reviewed: Outpatient record Prescription Management I considered prescription management with: Antibiotic and Other Discharge Plan Discharge Clinical Impression: COVID-19, Influenza A Patient Disposition: Home, Self-Care Instructions: Influenza (ED), COVID-19 (Coronavirus Disease 2019) (ED) Additional Instructions: mask up and avoid exposures to others return for confusion, unable to eat or drink, chest pain, shortness of breath unable to walk to your own bathroom or any other concerns tylenol and motrin for pain stay hydrated urine not infected occasionally COVID has caused irregular bleeding it this worsens follow up with OBGYN sent off STI testing if positive we will call you Prescriptions: New ondansetron 4 mg tablet,disintegrating 4 mg PO Q8H PRN (Reason: nausea and vomiting) Qty: 20 0RF No Action nitrofurantoin monohyd/m-cryst [Macrobid] 100 mg capsule 100 mg PO BID 5 Days Qty: 10 0RF Rx Instructions: must administer with a meal/food Nexplanon 68 mg implant subdermal Stand Alone Forms: Work/School Release Print Language: Spanish
[2024-10-27 11:15] LABS: IDNOW Serial# 08D9AD1C; Strep A Nucleic Acid Negative (Negative)
[2024-10-27 11:36] LABS: Influenza A PCR POSITIVE (Negative); Influenza B PCR NEGATIVE (Negative); Resp Syncy Virus RNA Qual PCR NEGATIVE (Negative); SARS COV2 PCR INHOUSE POSITIVE (Negative)
[2024-10-27 12:04] LABS: Appearance Urine Cloudy; Color Urine Dark Yellow; Glucose Urine UA Negative (Negative); Leukocyte Esterase Urine Trace (Negative); Nitrite Urine Negative (Negative); Specific Gravity - Urine >= 1.030 (1.005-1.025); UMIC TRIGGER UACC YES; Urine Blood Trace (Negative); Urine Ketones 15 mg/dL (Negative); Urine Protein 30 (1+) mg/dL (Neg-Trace)
[2024-10-27 12:06] LABS: UPreg QC Valid YES; Urine Pregnancy NEGATIVE (NEGATIVE)
[2024-10-27 12:15] LABS: Bacteria Urine 2+ (None Seen); Hyaline Casts Urine 0-2 /LPF (0-2); Squamous Epithelial Cell Urine >20 /HPF (0-2); WBC Urine 0-5 /HPF (0-5)
[2024-10-27 12:49] VITALS: BP 119/72; PULSE 117; RESP 18; TEMP 37.3; O2SAT 100
[2024-10-27 13:39] LABS: CT PCR NOT DETECTED (Not Detect.); NG PCR NOT DETECTED (Not Detect.)
== END 2024-10-27 15:17 | disposition home or self-care (01) ==
LOC: HO.ED 12:56
PROVIDERS: Emergency Provider Emergency Medicine; PCP Internal Medicine
DX: U07.1 COVID-19 (principal); J10.1 Influenza due to other identified influenza virus with other respiratory manifestations; J02.9 Acute pharyngitis, unspecified; R30.0 Dysuria; J45.909 Unspecified asthma, uncomplicated
CPT/HCPCS: 0241U; 81001; 81025; 87491; 87591; 87651; 99282; 99283

== ENCOUNTER 2025-09-20 10:10 | Emergency (ER) | payer OTHER, SELFPAY ==
[2025-09-20 10:36] VITALS: BP 117/72; PULSE 74; RESP 18; TEMP 36.6; O2SAT 100; BMI 19.5
--- OUTSIDE RECORDS SUMMARY | 2025-09-20 11:16 | XMS_ITS | Encounter Summary ---
Author Organization [facility] Address [address] [place] [id number] Phone Care Team Providers Care Signal Constructor Name Role Phone Trevor Castro MD Primary Care Provider [phone] Encounter Details Date Type Department Care Team (Late st Contact Info) Description 06/04/2017 Documentation [facility] [place] [address] [place] [address] Family Medicine, Physician [address] [place], [place] [id number] Social History Tobacco Use Types Packs/Day Years Used Date Smoking Tobacco: Never Comments:Never smoker Comments Unknown Sex and Gender Information Value Date Recorded Sex Assigned at Not on file Legal Sex Female 5:04 PM EDT Gender Identity Not on file Sexual Orientation Not on file documented as of this encounter Plan of Treatment Not on file documented as of this encounter Visit Diagnoses Not on filedocumented in this encounter Care Teams Signal Constructor Relationship Specialty Start Date End Date Trevor Castro MD [address] [place] [address] PCP - General Pediatrics 06/20/17 12/06/22 documented as of this encounter
--- OUTSIDE RECORDS SUMMARY | 2025-09-20 11:16 | XMS_ITS | Encounter Summary ---
Author Organization [facility] Address [address] [place] [id number] Phone Care Team Providers Care Regrinder Operator Name Role Phone Trevor Castro MD Primary Care Provider [phone] Encounter Details Date Type Department Care Team (Late st Contact Info) Description 04/11/2012 Documentation [facility] [place] Family Medicine [address] [place] [address] Family Medicine, Physician [address] [place], [place] [id number] Social History Tobacco Use Types Packs/Day Years Used Date Smoking Tobacco: Never Assessed Comments Unknown Sex and Gender Information Value Date Recorded Sex Assigned at Not on file Legal Sex Female 5:04 PM EDT Gender Identity Not on file Sexual Orientation Not on file documented as of this encounter Plan of Treatment Not on file documented as of this encounter Visit Diagnoses Not on filedocumented in this encounter Care Teams Regrinder Operator Relationship Specialty Start Date End Date Trevor Castro MD [address] [facility] [place] [address] PCP - General Pediatrics 06/20/17 12/06/22 documented as of this encounter
--- OUTSIDE RECORDS SUMMARY | 2025-09-20 11:17 | XMS_ITS | Encounter Summary ---
Author Organization [facility] Address [address] [place] [id number] Phone Care Team Providers Care C D Stripper Name Role Phone Trevor Castro MD Primary Care Provider [phone] Encounter Details Date Type Department Care Team (Late st Contact Info) Description 01/09/2013 Documentation [facility] [place] Family Medicine [address] [place] [address] Family Medicine, Physician [address] [place], [place] [phone] Social History Tobacco Use Types Packs/Day Years [...] on filedocumented in this encounter Care Teams C D Stripper Relationship Specialty Start Date End Date Trevor Castro MD [address] [facility] [place] [address] PCP - General Pediatrics 06/20/17 12/06/22 documented as of this encounter
--- OUTSIDE RECORDS SUMMARY | 2025-09-20 11:17 | XMS_ITS | Clinical Summary ---
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 Myopia 01/06/2010 Immunizations Immunization Administration Dates Next Due DTP 11/11/1998, 8,1997,06/08 DTaP 5 04/10/2001 H1N1 09/03/2009 HPV, Quadrivalent 10/29/2013,07/25/2012,06/21/20 11 Hep A, ped/adol 11/26/2014,10/29/2013 Hep B, ped/adol 1997,1997,1997 Hib (PRP-T) 07/28/1998, 8,1997,06/08 IPV 04/10/2001 Influenza Split 07/25/2012 Influenza, injectable, quadrivalent 11/26/2014 Influenza, injectable, quadr ivalent, preservative free 07/13/2015,10/29/2013 Influenza, injectable, trivalent 09/03/2009 MMR 04/10/2001,05/06/1998 Meningococcal Conj (Menactra) MCV4P 12/15/2015,0 05/04/2009 OPV 1997,1997,1997 Tdap 05/04/2009 Varicella 05/04/2009,05/06/1998 Family History Medical History Relation Name Comments Cardiomyopathy Father Jospeh Diabetes Father Jospeh Arthritis Mother Theresea Fibromyalgia Mother Theresea Anemia Sister 1 Denise dumont Relation Name Status Comments Father Kiana Alive Mother Theresea Alive Sister 1 Denise dumont Alive Sister 2 Kisha Alive Social History Tobacco Use Types Packs/Day Years Used Date Smoking Tobacco: Never Smokeless Tobacco: Never Comments:Never smoker Comments No Sex and Gender Information Value Date Recorded Sex Assigned at Not on file Legal Sex Female 5:04 PM EDT Gender Identity Not on file Sexual Orientation Not on file Last Filed Vital Signs Vital Sign Reading Time Taken Comments Blood Pressure 106/66 07/25/2017 2:55 PM EDT Pulse 80 07/25/2017 2:55 PM EDT Temperature 36.3 C (97.3 F) 05/24/2017 12:00 AM EDT Respiratory Rate - - Oxygen Saturation - - Inhaled Oxygen Concentration - - Weight 66 kg (145 lb 8 oz) 07/25/2017 2:55 PM ED T Height 171.5 cm (5' 7.5 ) 07/25/2017 2:55 PM EDT Body Mass Index 22.45 07/25/2017 2:55 PM EDT Plan of Treatment Health Maintenance Due Date Last Done Comments Hepatitis B Vaccines (4 of 4 - 4-dose series) 1997 1997, 1997, 1997 DTaP,Tdap,and Td Vaccines (7 - Td or Tdap) 05/04/2019 05/04/2009, 04/10/2001, 11/11/1998, Additional history exists Influenza Vaccines (#1) 2025 07/13/20 15, 11/26/2014, 10/29/2013, Additional history exists COVID-19 Vaccine (2024- season) 2025 HIB Vaccines Completed 07/28/1998, 10/15, 1997, Additional history exists IPV Vaccines Completed 04/10/2001, 10/15, 1997, Additional history exists MMR Vaccines Completed 04/10/2001, 05/06/1998 Varicella Vaccines Completed 05/04/2009, 05/06/1998 HPV Vaccines Completed 10/29/2013, 07/15, 06/21/2011 Hepatitis A Vaccines Completed 11/26/2014, 10/29/19 14 Meningococcal Vaccine Completed 12/15/2015, 009 Men B Vaccine Aged Out No longer elig ible based on patient's age to complete this topic Pneumococcal Vaccine Aged Out No long er eligible based on patient's age to complete this topic
--- OUTSIDE RECORDS SUMMARY | 2025-09-20 11:17 | XMS_ITS | Encounter Summary ---
Author Organization [facility] Address [address] [place] [address] Phone Care Team Providers Care Bridge Instructor Name Role Phone Trevor Castro MD Primary Care Provider [phone] Encounter Details Date Type Department Care Team (Late st Contact Info) Description 05/31/2017 Conversion Encounter [facility] [place] [address] [place] [address] Social History Tobacco Use Types Packs/Day Years [...] on filedocumented in this encounter Care Teams Bridge Instructor Relationship Specialty Start Date End Date Trevor Castro MD [address] [place] [address] PCP - General Pediatrics 06/20/17 12/06/22 documented as of this encounter
--- OUTSIDE RECORDS SUMMARY | 2025-09-20 11:17 | XMS_ITS | Encounter Summary ---
Author Organization [facility] Address [address] [place] [phone] Phone Care Team Providers Care Solutions Analyst Name Role Phone Trevor Castro MD Primary Care Provider [phone] Encounter Details Date Type Department Care Team (Late st Contact Info) Description 03/03/2013 Documentation [facility] [place] [facility] [address] [place] [address] Family Medicine, Physician [address] [place], [place] [id number] Social History Tobacco Use Types Packs/Day Years [...] on filedocumented in this encounter Care Teams Solutions Analyst Relationship Specialty Start Date End Date Trevor Castro MD [address] [facility] [id number] PCP - General Pediatrics 06/20/17 12/06/22 documented as of this encounter
--- OUTSIDE RECORDS SUMMARY | 2025-09-20 11:17 | XMS_ITS | Encounter Summary ---
Author Organization [facility] Address [address] [place] [address] Phone Care Team Providers Care Leasing Associate Name Role Phone Trevor Castro MD Primary Care Provider [phone] Encounter Details Date Type Department Care Team (Late st Contact Info) Description 02/03/2014 Documentation [facility] [place] [facility] [address] [place] [address] Family Medicine, Physician [address] [place], [place] [phone] Social History Tobacco Use Types Packs/Day Years [...] on filedocumented in this encounter Care Teams Leasing Associate Relationship Specialty Start Date End Date Trevor Castro MD [address] [place] [id number] PCP - General Pediatrics 06/20/17 12/06/22 documented as of this encounter
--- OUTSIDE RECORDS SUMMARY | 2025-09-20 11:17 | XMS_ITS | Encounter Summary ---
Author Organization [facility] Address [address] [place] [phone] Phone Care Team Providers Care Analytical Consultant Name Role Phone Trevor Castro MD Primary Care Provider [phone] Encounter Details Date Type Department Care Team (Late st Contact Info) Description 03/03/2013 Documentation [facility] [place] [facility] [address] [place] [address] Family Medicine, Physician [address] [place], [place] [phone] Social History Tobacco Use Types Packs/Day Years [...] on filedocumented in this encounter Care Teams Analytical Consultant Relationship Specialty Start Date End Date Trevor Castro MD [address] [place] [address] PCP - General Pediatrics 06/20/17 12/06/22 documented as of this encounter
[2025-09-20 12:11] VITALS: BP 117/72; PULSE 74; RESP 18; TEMP 36.6; O2SAT 100
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
== END 2025-09-20 12:14 | disposition home or self-care (01) ==
PROVIDERS: Emergency Provider Emergency Medicine; PCP Internal Medicine
DX: Z04.1 Encounter for examination and observation following transport accident (principal); M54.50 Low back pain, unspecified; M25.562 Pain in left knee
CPT/HCPCS: 99282